=== PATIENT | female | born 1940 | race Caucasian/White ===

== ENCOUNTER → 2016-03-04 | Outpatient (CLI) | payer MEDICARE, OTHER ==
[2016-01-30 17:40] VITALS: BP 160/75
[~2016-03-04] MED LIST: CLON0.5T PO; CYCL10TA2 PO; CYCL1DRO OP; DULO60CA6 PO; FENO145T2 PO; FLUT9.9S NS; FURO40TA4 PO; GABA-586 PO; HYDR-971 PO; HYDR200T PO; IBAN150T PO; IOHEXOL 240 MG/ML 50ML VIAL. PO ONE; IOHEXOL 300 MG/ML 100ML VIAL. IV ONE; LAMO100T5 PO; LISI-334 PO; MELO15TA6 PO; METH2.5T PO; NITR100C PO; PANT40TA5 PO; POTA10CA PO; PRED1TAB3 PO; QUET300T5 PO; RISE35TA5 PO; TIZA4TAB PO
--- NOTE | 2016-03-04 12:14 | KCIC ---
PROCEDURE CT abdomen pelvis with contrast. HISTORY Abnormal bowel movements, symptoms for a few weeks, history of diverticulitis and bowel resection TECHNIQUE After administration of intravenous and oral contrast, CT imaging was performed of the abdomen and pelvis, multiplanar reconstruction images submitted. Exposure: One or more of the following individualized dose reduction techniques were utilized for this exam: 1. Automated exposure control. 2. Adjustment of the mA and/or kV according to patient size. 3. Use of iterative reconstruction technique. Contrast: 100 cc Omnipaque 300 COMPARISON None FINDINGS There is mild motion. There is mild atelectasis of visualized lung bases. There is coronary calcification. There is likely some calcification of the aortic valve leaflets. There is 1.6 centimeter hypodense lesion of the left lobe of the liver, density measurements of a cyst 14 Hounsfield units. Visualized bilateral breast parenchyma has a somewhat nodular appearance. Both kidneys enhance, no hydronephrosis. There is no adrenal nodularity. No focal abnormality is identified of the pancreas or spleen. Gallbladder is absent. There is no significant bowel dilatation, free air, free fluid. There is retained stool variably in the colon. There is anastomotic site at the level of the mid to distal sigmoid colon. There is mild to moderate diverticulosis of the redundant proximal to mid sigmoid colon and minimally of the descending colon, no inflammatory type change to suggest diverticulitis. Appendix if still present is not clearly identified. There is fat within the inguinal canals bilaterally greater on the right, no bowel. No significantly enlarged lymph nodes are identified. There is scattered atherosclerotic calcification of the abdominal aorta and iliac arteries. There is severe levoscoliosis centered about the thoracolumbar junction. There is grade 1 anterior spondylolisthesis at L4-5. There is multilevel variable moderate to severe degenerative disc disease. There is neural foramina compromise including more significant narrowing such as on the right at L1-L2, T12-L1, T11-12 and on the left at L5-S1, L4-5, L2-3, L1-2. There is multilevel lumbar facet degenerative change. IMPRESSION 1. There is colonic diverticulosis without convincing evidence of diverticulitis. There is no free air or free fluid. 2. There is severe lumbar levoscoliosis. There is multilevel degenerative disc disease, also multilevel neural foramina compromise. 3. There is fat in the inguinal canals bilaterally greater on the right, no bowel. 4. There apparently some calcification of the aortic valve leaflets. There is coronary calcification. Electronically signed by: Nehemias Camp MD (Mar 04, 2016 12:12:34)
== END | disposition home or self-care (01) ==
LOC: KCIC CT 10:14
PROVIDERS: ATTEND Family Medicine
DX: R19.4 Change in bowel habit (principal); I70.0 Atherosclerosis of aorta; M51.36 Other intervertebral disc degeneration, lumbar region
CPT/HCPCS: 74177; 82565; Q9966

== ENCOUNTER → 2016-03-26 | Outpatient (CLI) | payer MEDICARE, OTHER ==
[2016-01-30 17:40] VITALS: BP 160/75
[~2016-03-26] MED LIST changes: -IOHEXOL 240 MG/ML 50ML VIAL. PO ONE; -IOHEXOL 300 MG/ML 100ML VIAL. IV ONE
--- NOTE | 2016-03-26 15:04 | KCIC ---
PROCEDURE MR of the right shoulder HISTORY Right shoulder pain after a fall a few months ago. TECHNIQUE Standard noncontrast images are obtained. COMPARISON None FINDINGS [id number] motion degradation The acromioclavicular joint is degenerative with moderate osteophytes. There is undersurface mass-effect upon the supraspinatus. Full-thickness tear of the supraspinatus tendon, at its posterior aspect, measures about 15 mm AP with 20 mm retraction. Otherwise generalized rotator cuff tendinosis. Mild fluid in the subdeltoid bursa. Moderate muscle volume loss and fatty infiltration. No significant glenohumeral joint effusion. Abnormal signal within the superior and posterior labrum compatible with a tear. Biceps tendinosis with partial tearing. No dislocation. At least mild primary osteoarthritis at the glenohumeral joint. No bone lesion or acute fracture. No acute soft tissue or muscle pathology. IMPRESSION 1. Moderate full-thickness rotator cuff tear of the supraspinatus tendon with more generalized rotator cuff tendinosis. 2. Posterior through superior labral tear. 3. Primary osteoarthritis. Electronically signed by: Abner Zapata MD (Mar 26, 2016 15:03:06)
== END | disposition home or self-care (01) ==
LOC: KCIC MRI 12:13
PROVIDERS: ATTEND Orthopaedic Surgery
DX: M25.711 Osteophyte, right shoulder (principal); M75.101 Unspecified rotator cuff tear or rupture of right shoulder, not specified as traumatic
CPT/HCPCS: 73221

== ENCOUNTER → 2016-03-31 | Outpatient (CLI) | payer MEDICARE, OTHER ==
[2016-01-30 17:40] VITALS: BP 160/75
[~2016-03-31] MED LIST changes: +IOHEXOL 180 MG/ML 10 ML VIAL. ONE; +methylPREDNISolone ACETATE 40 MG/ML VIAL. ONE; +methylPREDNISolone ACETATE 80 MG/ML VIAL. ONE
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
== END | disposition home or self-care (01) ==
LOC: PNCL 11:06
PROVIDERS: ATTEND Anesthesiology
DX: M51.16 Intervertebral disc disorders with radiculopathy, lumbar region (principal); M19.90 Unspecified osteoarthritis, unspecified site; I10 Essential (primary) hypertension; M35.00 Sjogren syndrome, unspecified; Z83.3 Family history of diabetes mellitus
CPT/HCPCS: 62323; J1030; J1040

== ENCOUNTER → 2016-05-26 | Outpatient (CLI) | payer MEDICARE, OTHER ==
[2016-01-30 17:40] VITALS: BP 160/75
--- NOTE | 2016-05-26 19:23 | PAIN ---
DATE OF SERVICE: 05/26/2016 PROGRESS NOTE FOR PAIN CLINIC DIAGNOSES: Lumbar radiculopathy with lumbar degenerative disk disease and facet ____. HISTORY OF PRESENT ILLNESS: The patient is a 76-year-old female, who returns for followup status post lumbar epidural steroid injection x 1 on 03/31/2016. The patient reports she did very well with this, approximately 50% improvement, still residual in the low back and bilateral lower extremities. The patient reports the left is ____ of the right, in the hips and legs, but much less radiation in lower extremities, now it mostly just in the back as well. The patient increased activity with greater ease and comfort, but is beginning to return now the pain is in the low back and legs states for anymore from 9 to 6 on a scale 10, currently at 6. It is worse with walking and standing and flexion and extension exercises. The patient has been doing exercises as on her own and trying to walk every day, has been doing a good job of maintaining her activity level by her report. The patient reports no new motor or sensory deficits, no new bowel or bladder incontinence or other complaints. The patient reports the pain, sharp in the low back itself. PHYSICAL EXAMINATION: VITAL SIGNS: The patient's blood pressure 134/72, pulse 75, respirations are 18, temperature is 98.0 degrees Fahrenheit, height is 5 feet 8 inches, weight 203 pounds. GENERAL: The patient is awake, alert, oriented, appropriate, very pleasant demeanor. HEENT: Head shows normocephalic, atraumatic. Extraocular movements are intact, symmetrical. Oral cavity, mucous membranes are moist and pink. Dentition is intact. NECK: Shows anterior throat supple without palpable lymphadenopathy noted. Swallow reflex is symmetrical. CHEST: Shows normal on inspection. Breath sounds are clear to auscultation bilaterally. HEART: Shows S1 and S2 clear. ABDOMEN: Soft, nontender, nondistended. BACK: Shows spine grossly midline. Slight exaggeration of thoracic kyphosis and mild flattening of lumbar lordotic curvature. Lumbar paraspinous muscle shows some moderate tenderness with palpation in the lumbar paraspinous musculature bilaterally, but only diffusely without radiation of pain. LOWER EXTREMITIES: Showed deep tendon reflexes 1+ in the patellar and tendo calcaneus tendons are equal. Motor exam is approximately 4 on a scale of 5, but is symmetrical with dorsiflexion, extension, quadriceps and hamstring flexion and are equal bilaterally. Options were discussed with the patient and the patient's old chart was reviewed as her current medication regimen updated. Current review of systems updated today as well. We will proceed with a second lumbar epidural steroid injection today with fluoroscopic guidance. Risks were again discussed including, but not limited to bleeding, infection, possibility of epidural hematoma, subsequent neurologic compromise, dural punctures, headaches, spinal cord and/or nerve damage, side effects of steroid medication and poor results regarding pain control. The patient understands and wishes to proceed. The patient will return to clinic in approximately 2 weeks for followup, was counseled on return appointment, activity level and side effects to be aware of. DIAGNOSES: Lumbar radiculopathy with lumbar degenerative disk disease. PROCEDURES: Lumbar epidural steroid injection in translaminar approach at the L4-L5 level using C-arm fluoroscopic guidance under sterile prep and drape using local anesthetic. MEDICATIONS INJECTED: Depo-Medrol 120 mg plus with 10 mL of preservative-free normal saline and 2 mL Isovue for contrast. CONDITION ON DISCHARGE: Stable. The patient tolerated procedure well, had no complications. DEANN GARRISON MD DR: HO/harriet JOB#: [id number] / [id number]
== END | disposition home or self-care (01) ==
LOC: PNCL 11:05
PROVIDERS: ATTEND Anesthesiology
DX: M51.16 Intervertebral disc disorders with radiculopathy, lumbar region (principal); Z86.73 Personal history of transient ischemic attack (TIA), and cerebral infarction without residual deficits; Z90.49 Acquired absence of other specified parts of digestive tract
CPT/HCPCS: 62323; J1030; J1040

== ENCOUNTER → 2016-06-09 | Outpatient (CLI) | payer MEDICARE, OTHER ==
[2016-01-30 17:40] VITALS: BP 160/75
[~2016-06-09] MED LIST changes: +BUPIVACAINE MPF 0.25% 10 ML VIAL. ONE; -IOHEXOL 180 MG/ML 10 ML VIAL. ONE
--- NOTE | 2016-06-10 03:30 | PAIN ---
DATE OF SERVICE: 06/09/2016 DIAGNOSES: 1. Lumbar radiculopathy with lumbar degenerative disk disease. 2. Bilateral shoulder joint pain. HISTORY OF PRESENT ILLNESS: The patient is a 76-year-old female who returns for followup, status post lumbar epidural steroid injections x 2. The patient reports very good relief about 80% overall in her low back and bilateral lower extremities. The patient reports her main complaint today is bilateral shoulder pain and we talked about this on her last visit earlier this month. She has some significant acromioclavicular joint pain. The patient reports the pain in the shoulders at the worst is a 9 on a scale of 10, worse with activity, worse with using upper extremities, lifting anything, using her arms above her head, getting dressed. The patient reports it does not awaken her from sleep at night, but it is a shooting and aching pain in the shoulders themselves. Again, back doing much better. The patient reports no new motor or sensory deficits, no new bowel or bladder incontinence or other complaints. PHYSICAL EXAMINATION: VITAL SIGNS: Today, the patient's blood pressure 128/56, pulse is 68, respirations 18, temperature 98.0 degrees Fahrenheit. Height is 5 feet 4 inches, weight is 253 pounds. GENERAL: The patient is awake, alert, oriented, appropriate, very pleasant demeanor. HEENT: Shows normocephalic and atraumatic. Extraocular movements are intact and symmetrical. Oral cavity: Mucous membranes are moist and pink. Dentition is intact. NECK: Shows anterior throat supple without palpable lymphadenopathy noted. Swallow reflex is symmetrical. CHEST: Shows normal on inspection. Breath sounds are clear to auscultation bilaterally. HEART: Shows S1 and S2 clear. ABDOMEN: Soft, nontender, nondistended. No palpable organomegaly is noted. No rebound or guarding demonstrated. BACK: The patient's back shows spine grossly in the midline. Slight exaggeration of thoracic kyphosis and some mild flattening of the lumbar lordotic curvature. The patient's lower extremities show deep tendon reflexes at 1+ in the patellar and 1+ tendo calcaneus tendons. Motor exam is approximately 4 on a scale of 5, but equal and symmetrical bilaterally. EXTREMITIES: The patient's upper extremities show deep tendon reflexes at 2+ in the biceps and triceps tendons. 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 The patient has significant tenderness over the acromioclavicular joints, however, especially on the left side with palpation over the joint itself without specific radiation. Also, tenderness with abduction of the shoulder to 90 degrees and resistance with significant pain in this region as well. Options were discussed with the patient. The patient's old chart was reviewed as her current medication regimen and updated. Current review of systems updated today as well. We will proceed with bilateral acromioclavicular joint injections with fluoroscopic guidance today. Risks were discussed including but not limited to bleeding, infection, possibility of intravascular injection sequelae, spread of local anesthetic and numbness, pneumothorax, side effects of steroid medication, exposure to fluoroscopy and poor results regarding pain control. The patient understands and wishes to proceed. The patient will return to the clinic in approximately 2 weeks for followup. He was counseled on return appointment, activity levels and side effects to be aware of. DIAGNOSIS: Bilateral shoulder joint pain. PROCEDURE: Bilateral acromioclavicular joint injections with C-arm fluoroscopic guidance under sterile prep and drape using local anesthetic. MEDICATION INJECTED: A total of 80 mg of Depo-Medrol, 40 mg per side, and a total of 4 mL of 0.25% bupivacaine, 2 mL per side after negative aspiration at each injection. CONDITION AT DISCHARGE: Stable. The patient tolerated the procedure well, had no complications. DEANN GARRISON MD DR: HO/harriet JOB#: [id number] / [id number]
== END | disposition home or self-care (01) ==
LOC: PNCL 10:49
PROVIDERS: ATTEND Anesthesiology
DX: M25.512 Pain in left shoulder (principal); M25.511 Pain in right shoulder; Z86.73 Personal history of transient ischemic attack (TIA), and cerebral infarction without residual deficits; Z90.49 Acquired absence of other specified parts of digestive tract
CPT/HCPCS: 20605; 77002; J1030; J3490; J1040

== ENCOUNTER → 2016-06-17 | Outpatient (CLI) | payer MEDICARE, OTHER ==
[2016-01-30 17:40] VITALS: BP 160/75
[~2016-06-17] MED LIST changes: -BUPIVACAINE MPF 0.25% 10 ML VIAL. ONE; +IOHEXOL 180 MG/ML 10 ML VIAL. ONE; -POTA10CA PO; +POTASSIUM CHLO10 MEQ PO
--- NOTE | 2016-06-17 14:19 | PAIN ---
DATE OF SERVICE: 06/17/2016 PROGRESS NOTE FOR PAIN CLINIC DIAGNOSES: 1. Lumbar radiculopathy with lumbar degenerative disk disease. 2. Bilateral shoulder joint pain. HISTORY OF PRESENT ILLNESS: This is a 76-year-old female, who returns for followup status post bilateral acromioclavicular joint injections on 06/09/2016 with excellent relief nearly 100% of both shoulders at this time. The patient reports otherwise doing well. Her left shoulder has minor amount of pain and that she was lifting some items behind her the other day, but otherwise doing very well. The patient reports her main complaint still as her back and lower extremities with pain radiating to bilateral lower extremities, mostly in the posterior lateral thighs, anterior thighs across the low back with stabbing pain is aching, on and off intensity. It awakens her from sleep occasionally, but not every night. The patient reports anywhere from 5 to 8 on a scale of 10, currently a 5 today. The patient reports no new motor or sensory deficits, no new bowel or bladder incontinence or other complaints. PHYSICAL EXAMINATION: VITAL SIGNS: The patient's blood pressure 130/73, pulse 73, respirations are 20, temperature 98.1 degrees Fahrenheit. Height is 5 feet 6 inches, weight is 203 pounds. GENERAL: The patient is awake, alert, oriented, appropriate, very pleasant demeanor. HEENT: Shows normocephalic, atraumatic. Extraocular movements are intact and symmetrical. Oral cavity shows mucous membranes moist and pink. Dentition is intact. NECK: Shows anterior throat supple without palpable lymphadenopathy noted. Swallow reflex is symmetrical. CHEST: Shows normal on inspection. Breath sounds are clear to auscultation bilaterally. HEART: Shows S1 and S2 clear. ABDOMEN: Soft, nontender, nondistended. No palpable organomegaly is noted. BACK: Shows spine grossly midline. Slight exaggeration of thoracic kyphosis and mild flattening of lumbar lordotic curvature. Lumbar paraspinous musculature shows symmetrical with palpation and without significant tenderness radiation of pain with palpation. The patient shows only diffuse tenderness in the low lumbar distribution. No tenderness over the sacrum or sacroiliac regions. The patient shows good rotational motion of the lumbar spine, both laterally as well as extension and flexion without significant difficulty. EXTREMITIES: The patient's lower extremities show deep tendon reflexes at 1+ in the patellar tendons. Motor exam is strong with 5/5 dorsiflexion, extension and equal. Options were discussed with the patient. The patient's old chart was reviewed as her current medication regimen updated. Current review of systems updated today as well. We will proceed with the third in a series of lumbar epidural steroid injection today with fluoroscopic guidance. Risks were again discussed including but not limited to bleeding, infection, possibility of epidural hematoma, subsequent neurologic compromise, dural puncture, headaches, spinal cord and/or nerve damage, side effects of steroid medication and poor results regarding pain control. The patient understands and wishes to proceed. The patient will return to the clinic in approximately 2 weeks for followup, was counseled on return appointment, activity level and side effects to be aware of. DIAGNOSES: Lumbar radiculopathy with lumbar degenerative disk disease. PROCEDURES: Lumbar epidural steroid injection in translaminar approach at the L4-L5 level using C-arm fluoroscopic guidance under sterile prep and drape using local anesthetic. MEDICATIONS INJECTED: Depo-Medrol 120 mg plus 10 mL of the preservative-free normal saline and 2 mL of Isovue for contrast. CONDITION AT DISCHARGE: Stable. The patient tolerated the procedure well, had no complications. DEANN GARRISON MD DR: HO/harriet JOB#: [id number] / [id number]
== END | disposition home or self-care (01) ==
LOC: PNCL 05:00
PROVIDERS: ATTEND Anesthesiology
DX: M51.16 Intervertebral disc disorders with radiculopathy, lumbar region (principal); Z90.49 Acquired absence of other specified parts of digestive tract; Z86.73 Personal history of transient ischemic attack (TIA), and cerebral infarction without residual deficits
CPT/HCPCS: 62323; J1030; J1040

== ENCOUNTER → 2016-08-31 | Outpatient (CLI) | payer MEDICARE, OTHER ==
[2016-01-30 17:40] VITALS: BP 160/75
[~2016-08-31] MED LIST changes: +BUPIVACAINE MPF 0.25% 10 ML VIAL. ONE; -methylPREDNISolone ACETATE 40 MG/ML VIAL. ONE
== END | disposition home or self-care (01) ==
LOC: PNCL 10:26
PROVIDERS: ATTEND Anesthesiology
DX: M25.512 Pain in left shoulder (principal); M25.511 Pain in right shoulder; M51.16 Intervertebral disc disorders with radiculopathy, lumbar region; Z88.6 Allergy status to analgesic agent; Z88.1 Allergy status to other antibiotic agents; Z88.2 Allergy status to sulfonamides
CPT/HCPCS: 20605; J1040; J3490

== ENCOUNTER 2016-10-17 10:36 | Emergency (ER) | payer MEDICARE, OTHER ==
[~2016-10-17] VITALS: Ht 172.7 cm; Wt 90.7 kg
[~2016-10-17 10:36] MED LIST changes: -BUPIVACAINE MPF 0.25% 10 ML VIAL. ONE; -IOHEXOL 180 MG/ML 10 ML VIAL. ONE; -methylPREDNISolone ACETATE 80 MG/ML VIAL. ONE
[2016-10-17 10:49] VITALS: BP 136/60
[2016-10-17] MEDS ORDERED: CLIN150C14 PO (10:58)
--- NOTE | 2016-10-17 10:58 | PHYS DOC ---
Past Medical History Past Medical History: Bipolar, High Cholesterol, Hypertension, TIA, Other Additional Past Medical Histor: lupus, sjogren's syndrome Past Surgical History: Cholecystectomy, Hysterectomy, Knee Replacement, Other Additional Past Surgical Histo: bowel resection; left foot surgery Alcohol Use: None Drug Use: None Adult General Chief Complaint Chief Complaint: LACERATION/AVULSION HPI HPI Patient is a 76 year old female with history of hypertension, high cholesterol , bipolar who presents today with dog scratch to the right forearm that happened one week ago. Patient states she got scratched by a friend's dog. Review of Systems Review of Systems Constitutional: Denies fever or chills [] Musculoskeletal: Denies back pain or joint pain [] Integument:dog scratch to the right forearm Neurologic: Denies headache, focal weakness or sensory changes [] Allergies Allergies Allergies Coded Allergies Type Severity Reaction Last Updated Verified Sulfa (Sulfonamide Antibiotics) Adverse Reaction Intermediate NAUSEA AND VOMITING 03/25/15 Yes cephalexin Adverse Reaction Intermediate VOMITING 03/25/15 Yes tramadol Adverse Reaction Intermediate DIZZINESS 03/25/15 Yes Physical Exam Physical Exam Constitutional: Well developed, well nourished, no acute distress, non-toxic appearance. [] Skin: Right forearm with an open wound approximately 2 x 1 cm. The wound is draining yellow discharge. Back: No tenderness, no CVA tenderness. [] Extremities: No tenderness, no cyanosis, no clubbing, ROM intact, no edema. [] Neurologic: Alert and oriented X 3, normal motor function, normal sensory function, no focal deficits noted. [] Psychologic: Affect normal, judgement normal, mood normal. [] EKG EKG [] Radiology/Procedures Radiology/Procedures [] Course & Med Decision Making Course & Med Decision Making Pertinent Labs and Imaging studies reviewed. (See chart for details) Patient is 76 year old woman who presents with approx. 2 x 1 cm infected dog scratch to the right forearm. Patient was discharged with clindamycin. She is allergic to cephalexin and Bactrim. She was instructed to keep the area clean and dry. Neosporin also recommended to the area. Tetanus updated. Follow-up with PCP in the course of this week. Provided return precautions. Dragon Disclaimer Dragon Disclaimer This electronic medical record was generated, in whole or in part, using a voice recognition dictation system. Departure Departure Impression: Primary Impression: Infected dog bite of forearm Disposition: 01 HOME, SELF-CARE Condition: STABLE Referrals: CLIFTON ADAME MD (PCP) Follow-up with your doctor in the next 7 days Patient Instructions: Animal Bite, Rzux-to-Yhue, Skin Infections Additional Instructions: You were seen with an infected dog scratch to the right forearm. Please keep the area clean and dry. You can wash it with her regular soap and water. Apply Neosporin to the area twice a day. Keep it covered if draining otherwise leave it open to air. Ensure you complete your oral antibiotics. Please follow-up with your doctor in the course of this week. Come back to the emergency room at any point symptoms worsen especially if you develop a fever. Scripts Clindamycin Hcl (CLINDAMYCIN HCL) 150 Mg Capsule 3 CAP PO TID, #90 CAP Prov: NONI CHUN APRN 10/17/16 Problem Qualifiers Primary Impression: Infected dog bite of forearm Encounter type: initial encounter Laterality: right Qualified Codes: S51.851A - Open bite of right forearm, initial encounter; L08.9 - Local infection of the skin and subcutaneous tissue, unspecified; W54.0XXA - Bitten by dog, initial encounter NONI CHUN APRN Oct 17, 2016 10:58
[2016-10-17] MEDS ORDERED: DIPHTH,PERTUSS(ACELL),TET TOX 0.5 ML DISP.SYRIN. VAX IM ONE (11:00)
[2016-10-17] MEDS ORDERED: CLINDAMYCIN HCL 150 MG CAPSULE. PO ONE (11:00)
== END 2016-10-17 11:10 | disposition home or self-care (01) ==
LOC: ER 10:36
DX: S51.851A Open bite of right forearm, initial encounter (principal); L08.9 Local infection of the skin and subcutaneous tissue, unspecified; I10 Essential (primary) hypertension; E78.00 Pure hypercholesterolemia, unspecified; F31.9 Bipolar disorder, unspecified; M32.9 Systemic lupus erythematosus, unspecified; Z86.73 Personal history of transient ischemic attack (TIA), and cerebral infarction without residual deficits; M35.00 Sjogren syndrome, unspecified; Z88.2 Allergy status to sulfonamides; Z88.1 Allergy status to other antibiotic agents; Z88.6 Allergy status to analgesic agent; W54.0XXA Bitten by dog, initial encounter; Y93.89 Activity, other specified; Y99.8 Other external cause status; Y92.89 Other specified places as the place of occurrence of the external cause
CPT/HCPCS: 90471; 90715; 99283-25

== ENCOUNTER 2016-10-21 16:54 | Emergency (ER) | payer MEDICARE, OTHER ==
[~2016-10-21] VITALS: Ht 172.7 cm; Wt 90.7 kg
[~2016-10-21 16:54] MED LIST changes: +CLIN150C14 PO
[2016-10-21] MEDS ORDERED: ONDANSETRON PF 4 MG/2 ML VIAL. IV ONE (17:45)
[2016-10-21 17:49] LABS: BASO # 0.1 x10^3/uL (0.0-0.2); BASO % 1 % (0-3); EOS % 2 % (0-3); HEMATOCRIT 39.1 % (36.0-47.0); HEMOGLOBIN 12.7 g/dL (12.0-15.5); LYMPH # 1.8 x10^3/uL (1.0-4.8); LYMPH % 25 % (24-48); MEAN CORPUSCULAR HEMOGLOBIN 29 pg (25-35); MEAN CORPUSCULAR HGB CONC 32 g/dL (31-37); MEAN CORPUSCULAR VOLUME 88 fL (79-100); MONO % 9 % (0-9); NEUT % 63 % (31-73); PLATELET COUNT 240 x10^3/uL (140-400); RED BLOOD COUNT 4.46 x10^6/uL (3.50-5.40); RED CELL DISTRIBUTION WIDTH 13.3 % (11.5-14.5)
[2016-10-21 17:50] LABS: BILIRUBIN,URINE NEGATIVE (NEG); GLUCOSE,URINE NEGATIVE (NEG); NITRITE,URINE NEGATIVE (NEG); PROTEIN,URINE NEGATIVE (NEG-TRACE); UROBILINOGEN,URINE 0.2 mg/dL (0.2 mg/dL)
[2016-10-21 18:00] LABS: BACTERIA,URINE FEW /HPF (0-FEW); RBC,URINE 0 /HPF (0-2); SQUAMOUS EPITHELIAL CELL,UR OCC /LPF; WBC,URINE OCC /HPF (0-4)
[2016-10-21 18:04] LABS: CALCIUM 9.4 mg/dL (8.5-10.1); CREATININE 1.2 mg/dL (0.6-1.0); GFR 43.7; POTASSIUM 4.8 mmol/L (3.5-5.1)
[2016-10-21 18:09] LABS: ALBUMIN/GLOBULIN RATIO 1.3 (1.0-1.7); TOTAL BILIRUBIN 0.3 mg/dL (0.2-1.0); TOTAL PROTEIN 7.2 g/dL (6.4-8.2)
[2016-10-21 18:34] VITALS: BP 166/74
--- NOTE | 2016-10-21 18:36 | EKG ---
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
[2016-10-21] MEDS ORDERED: LIDOCAINE (700MG/PATCH) PATCH. TD ONE (19:15)
[2016-10-21] MEDS ORDERED: fentaNYL PF VIAL 100 MCG/2 ML VIAL IV PRN (19:15)
--- NOTE | 2016-10-21 20:04 | RAD ---
Examination: CT of the abdomen pelvis were performed without contrast HISTORY: History of left flank pain COMPARISON: None available TECHNIQUE: Axial CT images of the abdomen pelvis were performed without contrast. Coronal and sagittal reformats are performed. Exposure: One or more of the following individualized dose reduction techniques were utilized for this examination: 1. Automated exposure control 2. Adjustment of the mA and/or kV according to patient size 3. Use of iterative reconstruction technique FINDINGS: Mild bibasilar lung atelectasis. No evidence of free air identified in the abdomen. The evaluation of solid organs is limited due to lack of IV contrast. The evaluation of bowel is limited due to lack of oral contrast. There is a hypodensity identified in the left lobe of the liver measuring 1.7 cm could be a cyst or cystic lesion. The visualized spleen, adrenals grossly appears unremarkable The stomach is mildly distended The small bowel is nondilated Feces and gas noted in the colon The visualized appendix grossly appears unremarkable Moderate amount of feces and gas noted throughout the colon. Few scattered colonic diverticula identified throughout the colon Prior surgical changes identified distal sigmoid colon region Urinary bladder is mildly distended No evidence of intrahepatic stomach is identified. There is mild prominent appearing right renal pelvis without obstructing calculus. Moderate aortic atherosclerosis. Severe degenerative changes identified at T12-L1 vertebral levels. Lumbar levoscoliosis IMPRESSION: 1. Mild prominent appearing right renal pelvis could be mild hydronephrosis . No evidence of obstructing calculi identified. 2. A hypodensity identified in the left lobe of the liver measuring 1.7 cm could be a cyst or cystic lesion. Follow-up nonemergent ultrasound can be considered. Electronically signed by: Isai Peterson MD (10/21/2016 8:01 PM) [facility]
[2016-10-21] MEDS ORDERED: LIDO700A39 TP (21:09)
--- NOTE | 2016-10-21 22:06 | ED.ADGEN ---
Past Medical History Past Medical History: Bipolar, High Cholesterol, Hypertension, TIA, Other Additional Past Medical Histor: lupus, sjogren's syndrome Past Surgical History: Cholecystectomy, Hysterectomy, Knee Replacement, Other Additional Past Surgical Histo: bowel resection; left foot surgery Alcohol Use: None Drug Use: None Adult General Chief Complaint Chief Complaint: ABDOMINAL PAIN HPI HPI Patient is a 76 year old woman, history of hypertension, lupus, bipolar disorder, Sjogren's syndrome, who ambulance with a walker baseline, present emergency department with complaint of left-sided back pain rating down as the left abdomen. Patient states pain began a few hours ago, and sharp and stabbing in nature, states that she's had similar back pains previously due to muscle spasm. Patient states she currently is taking myosin for a skin infection on her right arm, has been taking it for the past 5 days, with significant improvement of the infection, and believes that the medication be contributing to her muscle spasms and pain. States she was seen by a chiropractor yesterday, and told that "I'm out of alignment and need follow-up". She denies any new injuries, any weakness, numbness, tingling, nausea, vomiting states she is having some diarrhea, denies any blood in her stool. Patient states she's been taking her home medications including baclofen and hydrocodone without relief. Denies any urinary complaints. No chest pain or shortness of breath. Patient's daughter is present at bedside. Review of Systems Review of Systems Constitutional: Denies fever or chills. [] Eyes: Denies change in visual acuity. [] HENT: Denies nasal congestion or sore throat. [] Respiratory: Denies cough or shortness of breath. [] Cardiovascular: Denies chest pain or edema. [] GI: Denies nausea, vomiting, bloody stools, left flank and abdominal pain for the past several hours, diarrhea for the past several days. [] : Denies dysuria. [] Musculoskeletal: Denies back pain or joint pain. [] Integument: Denies rash. [] Neurologic: Denies headache, focal weakness or sensory changes. [] Endocrine: Denies polyuria or polydipsia. [] Lymphatic: Denies swollen glands. [] Psychiatric: Denies depression or anxiety. [] Current Medications Current Medications Current Medications Medications (Trade) Dose Ordered Sig/Mary Start Time Stop Time Status Last Admin Dose Admin Fentanyl Citrate (Fentanyl 2ml Vial) 25 mcg PRN Q15MIN PRN 10/21/16 19:15 10/21/16 21:19 DC 10/21/16 19:28 25 MCG Lidocaine (Lidoderm) 1 patch 1X ONCE 10/21/16 19:15 10/21/16 19:16 DC 10/21/16 19:12 1 PATCH Ondansetron HCl (Zofran) 4 mg 1X ONCE 10/21/16 17:45 10/21/16 17:46 DC Allergies Allergies Allergies Coded Allergies Type Severity Reaction Last Updated Verified Sulfa (Sulfonamide Antibiotics) Adverse Reaction Intermediate NAUSEA AND VOMITING 03/25/15 Yes cephalexin Adverse Reaction Intermediate VOMITING 03/25/15 Yes tramadol Adverse Reaction Intermediate DIZZINESS 03/25/15 Yes Physical Exam Physical Exam Constitutional: Well developed, well nourished, no acute distress, non-toxic appearance. [] HENT: Normocephalic, atraumatic, bilateral external ears normal, oropharynx moist, no oral exudates, nose normal. [] Eyes: PERRLA, EOMI, conjunctiva normal, no discharge. [] Neck: Normal range of motion, no tenderness, supple, no stridor. [] Cardiovascular:Heart rate regular rhythm, no murmur, S1, S2, no rubs or gallops. [] Lungs & Thorax: Bilateral breath sounds clear to auscultation, no wheezing, rhonchi, rales. No chest or crepitus or tenderness. [] Abdomen: Bowel sounds normal, soft, no tenderness, no masses, no pulsatile masses. [] Skin: Warm, dry, no erythema, no rash. [] Back: Patient with tenderness palpation in the paraspinal muscles of the left lumbar region, patient does have pain with mild palpation of the left abdomen, states the pain is radiating around from the back. Noted to have significant tissue tension and muscle spasm in the lumbar region, without any step-offs or deformities are midline tenderness appreciated, no CVA tenderness. [] Extremities: No tenderness, no cyanosis, no clubbing, ROM intact, no edema. [] Neurologic: Alert and oriented X 3, normal motor function, normal sensory function, no focal deficits noted. [] Psychologic: Affect normal, judgement normal, mood normal. [] Current Patient Data Vital Signs Vital Signs Date Time Temp Pulse Resp B/P (MAP) Pulse Ox O2 Delivery O2 Flow Rate FiO2 10/21/16 19:28 16 10/21/16 18:34 61 166/74 (104) 94 Room Air 10/21/16 17:48 98.5 98.5 Lab Values Laboratory Tests Test 10/21/16 17:30 10/21/16 17:40 10/21/16 18:30 Urine Color Yellow Urine Clarity Cloudy Urine pH 7.0 Urine Specific [place] 1.010 Urine Protein Negative mg/dL (NEG-TRACE) Urine Glucose (UA) Negative mg/dL (NEG) Urine Ketones (Stick) Negative mg/dL (NEG) Urine Blood Negative (NEG) Urine Nitrite Negative (NEG) Urine Bilirubin Negative (NEG) Urine Urobilinogen Dipstick 0.2 mg/dL (0.2 mg/dL) Urine Leukocyte Esterase Negative (NEG) Urine RBC 0 /HPF (0-2) Urine WBC Occ /HPF (0-4) Urine Squamous Epithelial Cells Occ /LPF Urine Amorphous Sediment Present /HPF Urine Bacteria Few /HPF (0-FEW) White Blood Count 7.0 x10^3/uL (4.0-11.0) Red Blood Count 4.46 x10^6/uL (3.50-5.40) Hemoglobin 12.7 g/dL (12.0-15.5) Hematocrit 39.1 % (36.0-47.0) Mean Corpuscular Volume 88 fL (79-100) Mean Corpuscular Hemoglobin 29 pg (25-35) Mean Corpuscular Hemoglobin Concent 32 g/dL (31-37) Red Cell Distribution Width 13.3 % (11.5-14.5) Platelet Count 240 x10^3/uL (140-400) Neutrophils (%) (Auto) 63 % (31-73) Lymphocytes (%) (Auto) 25 % (24-48) Monocytes (%) (Auto) 9 % (0-9) Eosinophils (%) (Auto) 2 % (0-3) Basophils (%) (Auto) 1 % (0-3) Neutrophils # (Auto) 4.4 x10^3uL (1.8-7.7) Lymphocytes # (Auto) 1.8 x10^3/uL (1.0-4.8) Monocytes # (Auto) 0.6 x10^3/uL (0.0-1.1) Eosinophils # (Auto) 0.1 x10^3/uL (0.0-0.7) Basophils # (Auto) 0.1 x10^3/uL (0.0-0.2) Sodium Level 139 mmol/L (136-145) Potassium Level 4.8 mmol/L (3.5-5.1) Chloride Level 102 mmol/L (98-107) Carbon Dioxide Level 31 mmol/L (21-32) Anion Gap 6 (6-14) Blood Urea Nitrogen 24 mg/dL (7-20) H Creatinine 1.2 mg/dL (0.6-1.0) H Estimated GFR (Cockcroft-Gault) 43.7 BUN/Creatinine Ratio 20 (6-20) Glucose Level 106 mg/dL (70-99) H Calcium Level 9.4 mg/dL (8.5-10.1) Total Bilirubin 0.3 mg/dL (0.2-1.0) Aspartate Amino Transferase (AST) 22 U/L (15-37) Alanine Aminotransferase (ALT) 26 U/L (14-59) Alkaline Phosphatase 51 U/L (46-116) Total Protein 7.2 g/dL (6.4-8.2) Albumin 4.0 g/dL (3.4-5.0) Albumin/Globulin Ratio 1.3 (1.0-1.7) Lipase 125 U/L (73-393) Lactic Acid Level 0.6 mmol/L (0.4-2.0) Laboratory Tests 10/21/16 17:40 Laboratory Tests 10/21/16 17:40 EKG EKG EC: Sinus rhythm, heart rate 62 beats are minute, upright axis, QTC of 422, CA 188, QRS of 74, no ST elevations or depressions, contour abnormality is noted in the inferior and lateral leads, does not meet STEMI criteria. As interpreted by me.[] Radiology/Procedures Radiology/Procedures [][facility] [address] [place] [address] IMAGING REPORT Signed PATIENT: GLENIS DOAN I ACCOUNT: [id number] : 1940 LOCATION: ER AGE: 76 SEX: F EXAM STATUS: REG ER ORD. PHYSICIAN: SERA MEIER DO REASON: L flank pain PROCEDURE: CT ABDOMEN PELVIS WO CONTRAST Examination: CT of the abdomen pelvis were performed without contrast HISTORY: History of left flank pain COMPARISON: None available TECHNIQUE: Axial CT images of the abdomen pelvis were performed without contrast. Coronal and sagittal reformats are performed. Exposure: One or more of the following individualized dose reduction techniques were utilized for this examination: 1. Automated exposure control 2. Adjustment of the mA and/or kV according to patient size 3. Use of iterative reconstruction technique FINDINGS: Mild bibasilar lung atelectasis. No evidence of free air identified in the abdomen. The evaluation of solid organs is limited due to lack of IV contrast. The evaluation of bowel is limited due to lack of oral contrast. There is a hypodensity identified in the left lobe of the liver measuring 1.7 cm could be a cyst or cystic lesion. The visualized spleen, adrenals grossly appears unremarkable The stomach is mildly distended The small bowel is nondilated Feces and gas noted in the colon The visualized appendix grossly appears unremarkable Moderate amount of feces and gas noted throughout the colon. Few scattered colonic diverticula identified throughout the colon Prior surgical changes identified distal sigmoid colon region Urinary bladder is mildly distended No evidence of intrahepatic stomach is identified. There is mild prominent appearing right renal pelvis without obstructing calculus. Moderate aortic atherosclerosis. Severe degenerative changes identified at T12-L1 vertebral levels. Lumbar levoscoliosis IMPRESSION: 1. Mild prominent appearing right renal pelvis could be mild hydronephrosis . No evidence of obstructing calculi identified. 2. A hypodensity identified in the left lobe of the liver measuring 1.7 cm could be a cyst or cystic lesion. Follow-up nonemergent ultrasound can be considered. Electronically signed by: Isai Peterson MD (10/21/2016 8:01 PM) [facility] DICTATED and SIGNED BY: ISAI PETERSON MD DATE: 10/21/161952 CC: CLIFTON ADAME MD; SERA MEIER DO ~ Course & Med Decision Making Course & Med Decision Making Pertinent Labs and Imaging studies reviewed. (See chart for details) Patient with evidence of tissue tension and muscle spasm location of pain, however with the patient's complaint of diarrhea, and age and other comorbidities, patient is agreeable receiving additional imaging or laboratory studies the ED to rule out any occult abnormalities. Laboratory studies and imaging obtained, does not reveal any evidence of acutely concerning findings CT findings and labs discussed with patient and family at bedside. Patient received fentanyl in the ED, along with placement of a Lidoderm patch, states that she is feeling significant better. Patient was ambulatory trial in the emergency department which she performed without issue, and states that she is rated go home. Patient's lives in an assisted-living, and patient's daughter states that she will stay with the patient, to ensure that she remains couple for the night, we also reviewed concerning symptoms that prompt return to the emergency department for additional evaluation. Patient voiced understanding and agreement with instructions and precautions, was given a prescription for Lidoderm patches to be used as needed on for 12 hours off her 12 hours, discharged home with her daughter in improved condition with plan as above., Leslee Disclaimer Dragon Disclaimer This electronic medical record was generated, in whole or in part, using a voice recognition dictation system. Departure Impression: Primary Impression: Muscle spasm Disposition: HOME, SELF-CARE Condition: IMPROVED Scripts Lidocaine (Lidocaine) 1 Each Adh..patch 1 EACH TP DAILY Y for MUSCLE SPASMS, #12 PATCH You make cuts patch in order to use the smallest amount possible that is effective, and applied to the affected area. Please keep patch on 12 hours, and then take off for 12 hours, do not use with heating pads or ice packs. Prov: SERA MEIER DO 10/21/16 SERA MEIER DO Oct 21, 2016 22:06
== END 2016-10-21 21:19 | disposition home or self-care (01) ==
LOC: ER 16:54
DX: M62.830 Muscle spasm of back (principal); I10 Essential (primary) hypertension; E78.00 Pure hypercholesterolemia, unspecified; F31.9 Bipolar disorder, unspecified; Z86.73 Personal history of transient ischemic attack (TIA), and cerebral infarction without residual deficits; Z88.2 Allergy status to sulfonamides; Z88.1 Allergy status to other antibiotic agents; Z88.6 Allergy status to analgesic agent
CPT/HCPCS: 36415; 74176; 80053; 81001; 83605; 83690; 85025; 93005; 96374; 99285; J3010

== ENCOUNTER 2016-11-19 18:32 | Emergency (ER) | payer MEDICARE, OTHER ==
[~2016-11-19] VITALS: Ht 172.7 cm; Wt 90.7 kg
[~2016-11-19 18:32] MED LIST changes: +LIDO700A39 TP
--- NOTE | 2016-11-19 19:09 | PHYS DOC ---
Past Medical History Past Medical History: Bipolar, High Cholesterol, Hypertension, TIA, Other Additional Past Medical Histor: lupus, sjogren's syndrome Past Surgical History: Cholecystectomy, Hysterectomy, Knee Replacement, Other Additional Past Surgical Histo: bowel resection; left foot surgery Alcohol Use: None Drug Use: None Adult General Chief Complaint Chief Complaint: OTHER COMPLAINTS [facility] HPI Patient is a 76 year old female who presents with UTI. She is a she' s been on Cipro twice over the last 2 weeks and is on Azo now. She states she has chronic suprapubic pain. She denies any fevers chills nausea or vomiting. Review of Systems Review of Systems Constitutional: Denies fever or chills [] Eyes: Denies change in visual acuity, redness, or eye pain [] HENT: Denies nasal congestion or sore throat [] Respiratory: Denies cough or shortness of breath [] Cardiovascular: No additional information not addressed in HPI [] GI: Positive for abdominal pain,Denies nausea, vomiting, bloody stools or diarrhea [] : Denies dysuria or hematuria [] Musculoskeletal: Denies back pain or joint pain [] Integument: Denies rash or skin lesions [] Neurologic: Denies headache, focal weakness or sensory changes [] Endocrine: Denies polyuria or polydipsia [] Allergies Allergies Allergies Coded Allergies Type Severity Reaction Last Updated Verified Sulfa (Sulfonamide Antibiotics) Adverse Reaction Intermediate NAUSEA AND VOMITING 03/25/15 Yes cephalexin Adverse Reaction Intermediate VOMITING 03/25/15 Yes tramadol Adverse Reaction Intermediate DIZZINESS 03/25/15 Yes Physical Exam Physical Exam Constitutional: Well developed, well nourished, no acute distress, non-toxic appearance. [] HENT: Normocephalic, atraumatic, bilateral external ears normal, oropharynx moist, no oral exudates, nose normal. [] Eyes: PERRLA, EOMI, conjunctiva normal, no discharge. [] Neck: Normal range of motion, no tenderness, supple, no stridor. [] Cardiovascular:Heart rate regular rhythm, no murmur [] Lungs & Thorax: Bilateral breath sounds clear to auscultation [] Abdomen: Bowel sounds normal, soft, mildly tender to palpation suprapubic area, no rebound or guarding noted, no masses, no pulsatile masses. [] Skin: Warm, dry, no erythema, no rash. [] Back: No tenderness, no CVA tenderness. [] Extremities: No tenderness, no cyanosis, no clubbing, ROM intact, no edema. [] Neurologic: Alert and oriented X 3, normal motor function, normal sensory function, no focal deficits noted. [] Psychologic: Affect normal, judgement normal, mood normal. [] Current Patient Data Vital Signs Vital Signs Date Time Temp Pulse Resp B/P (MAP) Pulse Ox O2 Delivery O2 Flow Rate FiO2 11/19/16 22:30 70 16 176/85 (115) 94 Nasal Cannula 2.0 Lab Values Laboratory Tests Test 11/19/16 19:48 11/19/16 20:26 Urine Collection Type Unknown Urine Color [place] Urine Clarity Clear Urine pH 6.0 Urine Specific [place] 1.020 Urine Protein Negative mg/dL (NEG-TRACE) Urine Glucose (UA) Negative mg/dL (NEG) Urine Ketones (Stick) Trace mg/dL (NEG) Urine Blood Negative (NEG) Urine Nitrite (NEG) Urine Bilirubin Negative (NEG) Urine Urobilinogen Dipstick 1.0 mg/dL (0.2 mg/dL) Urine Leukocyte Esterase (NEG) Urine RBC Occ /HPF (0-2) Urine WBC 0 /HPF (0-4) Urine Squamous Epithelial Cells Few /LPF Urine Bacteria 0 /HPF (0-FEW) Urine Hyaline Casts Occasional /HPF White Blood Count 6.1 x10^3/uL (4.0-11.0) Red Blood Count 3.89 x10^6/uL (3.50-5.40) Hemoglobin 11.2 g/dL (12.0-15.5) L Hematocrit 34.2 % (36.0-47.0) L Mean Corpuscular Volume 88 fL (79-100) Mean Corpuscular Hemoglobin 29 pg (25-35) Mean Corpuscular Hemoglobin Concent 33 g/dL (31-37) Red Cell Distribution Width 13.5 % (11.5-14.5) Platelet Count 222 x10^3/uL (140-400) Neutrophils (%) (Auto) 54 % (31-73) Lymphocytes (%) (Auto) 30 % (24-48) Monocytes (%) (Auto) 13 % (0-9) H Eosinophils (%) (Auto) 2 % (0-3) Basophils (%) (Auto) 1 % (0-3) Neutrophils # (Auto) 3.3 x10^3uL (1.8-7.7) Lymphocytes # (Auto) 1.8 x10^3/uL (1.0-4.8) Monocytes # (Auto) 0.8 x10^3/uL (0.0-1.1) Eosinophils # (Auto) 0.1 x10^3/uL (0.0-0.7) Basophils # (Auto) 0.1 x10^3/uL (0.0-0.2) Sodium Level 141 mmol/L (136-145) Potassium Level 4.5 mmol/L (3.5-5.1) Chloride Level 103 mmol/L (98-107) Carbon Dioxide Level 32 mmol/L (21-32) Anion Gap 6 (6-14) Blood Urea Nitrogen 23 mg/dL (7-20) H Creatinine 1.2 mg/dL (0.6-1.0) H Estimated GFR (Cockcroft-Gault) 43.7 Glucose Level 97 mg/dL (70-99) Calcium Level 9.1 mg/dL (8.5-10.1) Total Bilirubin 0.3 mg/dL (0.2-1.0) Direct Bilirubin 0.1 mg/dL (0.0-0.2) Aspartate Amino Transferase (AST) 22 U/L (15-37) Alanine Aminotransferase (ALT) 23 U/L (14-59) Alkaline Phosphatase 41 U/L (46-116) L Total Protein 6.5 g/dL (6.4-8.2) Albumin 3.6 g/dL (3.4-5.0) Laboratory Tests 11/19/16 20:26 Laboratory Tests 11/19/16 20:26 EKG EKG [] Radiology/Procedures Radiology/Procedures [facility] [address] [place], [place] [id number] IMAGING REPORT Signed PATIENT: GLENIS DOAN I ACCOUNT: [id number] : 1940 LOCATION: ER AGE: 76 SEX: F EXAM STATUS: REG ER ORD. PHYSICIAN: WENDI VIVEROS MD REASON: abd pain PROCEDURE: CT ABDOMEN PELVIS WO CONTRAST CT Abdomen and Pelvis without contrast History: Abdominal pain and urinary tract infection for 2 weeks, on antibiotics, painful urination Technique: Noncontrast CT imaging was performed of the abdomen and pelvis. Multiplanar images are reviewed. Exposure: One or more of the following individualized dose reduction techniques were utilized for this examination: 1. Automated exposure control 2. Adjustment of the mA and/or kV according to patient size 3. Use of iterative reconstruction technique. Comparison: October 21, 2016 Findings: Mild right pelvocaliectasis/very mild hydronephrosis is stable. Ureters are not dilated. No renal or ureteral calculi are identified. Accurate evaluation of the abdominal visceral organs is limited without intravenous contrast, no new focal abnormality of the pancreas or spleen. There is again 1.5 cm hypodense lesion of the left lobe of the liver, density measurements more suggestive of a cyst 17 Hounsfield units. Accurate evaluation of bowel is limited without oral contrast, no significant bowel dilatation or free air or free fluid. There is variable retained stool in the colon. There is again fat in the inguinal canals bilaterally, no bowel. There is moderate to severe lumbar levoscoliosis and multilevel variable lumbar degenerative disc disease, mild grade 1 anterior spondylolisthesis at L4-5. There is multilevel variable lumbar neural foramina compromise. There is coronary calcification. There is scattered atherosclerotic calcification of the abdominal aorta and iliac arteries bilaterally. Impression: 1. Mild right pelvocaliectasis/very mild right hydronephrosis is stable, no obstructive calculi identified. 2. There is variable between shoulder:. 3. There is again probable cyst of the left lobe of liver. 4. There is coronary calcification. 5. There is moderate to severe lumbar levoscoliosis, multilevel lumbar facet degenerative change and degenerative disc disease. Electronically signed by: Sushila Boo MD (11/19/2016 10:04 PM) [facility] DICTATED and SIGNED BY: SUSHILA BOO MD DATE: 11/19/162156 CC: CLIFTON ADAME MD; WENDI VIVEROS MD ~ Impressions: Dysuria Course & Med Decision Making Course & Med Decision Making Pertinent Labs and Imaging studies reviewed. (See chart for details) Labs show any acute abnormalities. I do not appreciate shows a urinary tract infection. CT scan was performed without oral contrast as the patient did not want to wait. He does not appreciate any abnormalities. The patient is being discharged home. Return precautions given. Dragon Disclaimer Dragon Disclaimer This electronic medical record was generated, in whole or in part, using a voice recognition dictation system. Departure Departure Impression: Primary Impression: Dysuria Disposition: 01 HOME, SELF-CARE Condition: STABLE Referrals: CLIFTON ADAME MD (PCP) Patient Instructions: Dysuria Additional Instructions: The CAT scan no pelvis did not show any acute abnormalities. Your urinalysis also did not show any signs of infection. You being discharged home. Please follow-up to primary care physician. Return to ER for severe pain, fevers, or other concerns. WENDI VIVEROS MD Nov 19, 2016 19:09
[2016-11-19 20:16] LABS: BILIRUBIN,URINE NEGATIVE (NEG); GLUCOSE,URINE NEGATIVE (NEG); PROTEIN,URINE NEGATIVE (NEG-TRACE)
[2016-11-19 20:27] LABS: RBC,URINE OCC /HPF (0-2); WBC,URINE 0 /HPF (0-4)
[2016-11-19 20:28] LABS: BACTERIA,URINE 0 /HPF (0-FEW); SQUAMOUS EPITHELIAL CELL,UR FEW /LPF
[2016-11-19 20:36] LABS: BASO # 0.1 x10^3/uL (0.0-0.2); BASO % 1 % (0-3); EOS % 2 % (0-3); HEMATOCRIT 34.2 % (36.0-47.0); HEMOGLOBIN 11.2 g/dL (12.0-15.5); LYMPH # 1.8 x10^3/uL (1.0-4.8); LYMPH % 30 % (24-48); MEAN CORPUSCULAR HEMOGLOBIN 29 pg (25-35); MEAN CORPUSCULAR HGB CONC 33 g/dL (31-37); MEAN CORPUSCULAR VOLUME 88 fL (79-100); MONO % 13 % (0-9); NEUT % 54 % (31-73); PLATELET COUNT 222 x10^3/uL (140-400); RED BLOOD COUNT 3.89 x10^6/uL (3.50-5.40); RED CELL DISTRIBUTION WIDTH 13.5 % (11.5-14.5); WHITE BLOOD COUNT 6.1 x10^3/uL (4.0-11.0)
[2016-11-19 20:54] LABS: CALCIUM 9.1 mg/dL (8.5-10.1); CREATININE 1.2 mg/dL (0.6-1.0); GFR 43.7; POTASSIUM 4.5 mmol/L (3.5-5.1)
[2016-11-19 20:58] LABS: ALBUMIN 3.6 g/dL (3.4-5.0); DIRECT BILIRUBIN 0.1 mg/dL (0.0-0.2); TOTAL BILIRUBIN 0.3 mg/dL (0.2-1.0); TOTAL PROTEIN 6.5 g/dL (6.4-8.2)
--- NOTE | 2016-11-19 22:07 | RAD ---
CT Abdomen and Pelvis without contrast History: Abdominal pain and urinary tract infection for 2 weeks, on antibiotics, painful urination Technique: Noncontrast CT imaging was performed of the abdomen and pelvis. Multiplanar images are reviewed. Exposure: One or more of the following individualized dose reduction techniques were utilized for this examination: 1. Automated exposure control 2. Adjustment of the mA and/or kV according to patient size 3. Use of iterative reconstruction technique. Comparison: October 21, 2016 Findings: Mild right pelvocaliectasis/very mild hydronephrosis is stable. Ureters are not dilated. No renal or ureteral calculi are identified. Accurate evaluation of the abdominal visceral organs is limited without intravenous contrast, no new focal abnormality of the pancreas or spleen. There is again 1.5 cm hypodense lesion of the left lobe of the liver, density measurements more suggestive of a cyst 17 Hounsfield units. Accurate evaluation of bowel is limited without oral contrast, no significant bowel dilatation or free air or free fluid. There is variable retained stool in the colon. There is again fat in the inguinal canals bilaterally, no bowel. There is moderate to severe lumbar levoscoliosis and multilevel variable lumbar degenerative disc disease, mild grade 1 anterior spondylolisthesis at L4-5. There is multilevel variable lumbar neural foramina compromise. There is coronary calcification. There is scattered atherosclerotic calcification of the abdominal aorta and iliac arteries bilaterally. Impression: 1. Mild right pelvocaliectasis/very mild right hydronephrosis is stable, no obstructive calculi identified. 2. There is variable between shoulder:. 3. There is again probable cyst of the left lobe of liver. 4. There is coronary calcification. 5. There is moderate to severe lumbar levoscoliosis, multilevel lumbar facet degenerative change and degenerative disc disease. Electronically signed by: Michael Camp MD (11/19/2016 10:04 PM) [facility]
[2016-11-19 22:30] VITALS: BP 176/85
[2017-02-06] MEDS ORDERED: PRED-220 PO (10:31)
[2017-02-06] MEDS ORDERED: LEVO500T59 PO (10:31)
[2017-02-06] MEDS ORDERED: FLUT12AE2 IH (10:31)
[2017-02-06] MEDS ORDERED: PROAIR HFA8.5 GM INH (10:31)
== END 2016-11-19 23:22 | disposition home or self-care (01) ==
LOC: ER 18:32
DX: R30.0 Dysuria (principal); G89.29 Other chronic pain; R10.30 Lower abdominal pain, unspecified; E78.00 Pure hypercholesterolemia, unspecified; I10 Essential (primary) hypertension; M32.9 Systemic lupus erythematosus, unspecified; Z86.73 Personal history of transient ischemic attack (TIA), and cerebral infarction without residual deficits; F31.9 Bipolar disorder, unspecified; Z88.2 Allergy status to sulfonamides; Z88.1 Allergy status to other antibiotic agents; Z88.6 Allergy status to analgesic agent
CPT/HCPCS: 36415; 74176; 80048; 80076; 81001; 85025; 99285-25

== ENCOUNTER 2017-02-04 15:10 | Inpatient (IN) | payer MEDICARE, OTHER ==
[~2017-02-04] VITALS: Ht 172.7 cm; Wt 97.6 kg
[2017-02-04] MEDS ORDERED: IPRATRPIUM/ALBUTEROL 0.5/2.5MG 3 ML NEBU. NEB ONE (16:45)
[2017-02-04 17:14] LABS: BASO # 0.1 x10^3/uL (0.0-0.2); BASO % 1 % (0-3); EOS % 1 % (0-3); HEMATOCRIT 38.4 % (36.0-47.0); HEMOGLOBIN 12.6 g/dL (12.0-15.5); LYMPH # 1.4 x10^3/uL (1.0-4.8); LYMPH % 24 % (24-48); MEAN CORPUSCULAR HEMOGLOBIN 29 pg (25-35); MEAN CORPUSCULAR HGB CONC 33 g/dL (31-37); MEAN CORPUSCULAR VOLUME 88 fL (79-100); MONO % 7 % (0-9); NEUT % 68 % (31-73); PLATELET COUNT 265 x10^3/uL (140-400); RED BLOOD COUNT 4.35 x10^6/uL (3.50-5.40); RED CELL DISTRIBUTION WIDTH 13.5 % (11.5-14.5); WHITE BLOOD COUNT 6.1 x10^3/uL (4.0-11.0)
[2017-02-04 17:24] LABS: CREATININE 1.1 mg/dL (0.6-1.0); GFR 48.3; POTASSIUM 4.2 mmol/L (3.5-5.1)
[2017-02-04 17:29] LABS: ALBUMIN 3.7 g/dL (3.4-5.0); DIRECT BILIRUBIN 0.2 mg/dL (0.0-0.2); TOTAL BILIRUBIN 0.4 mg/dL (0.2-1.0); TOTAL PROTEIN 6.8 g/dL (6.4-8.2)
[2017-02-04] MEDS ORDERED: methylPREDNISolone SOD SUCC PF 125 MG/2 ML VIAL. IV ONE (17:30)
--- NOTE | 2017-02-04 18:09 | PHYS DOC ---
Past Medical History Past Medical History: High Cholesterol, Hypertension Additional Past Medical Histor: ADVANCED LUPUS, SJOGRENS SYNDROME Past Surgical History: Cholecystectomy, Hysterectomy, Knee Replacement Additional Past Surgical Histo: LEFT FOOT Alcohol Use: None Drug Use: None Adult General Chief Complaint Chief Complaint: SHORTNESS OF BREATH HPI HPI 76-year-old female complaining of shortness of breath with cough for the last few days. She was given doxycycline and Tessalon Perles with minimal relief. It is worse with exertion. Nonradiating intermittent and not associated with sputum production. Review of systems is negative for fevers chills nausea or vomiting. All other review of systems is negative unless otherwise noted in history of present illness. ED course: 76-year-old female presenting with wheezing cough and shortness of breath. She is placed on oxygen in the emergency department and given nebulizers along with IV corticosteroids. Likely COPD exacerbation. EKG unremarkable. Chest x-ray not suggestive of pneumonia though poor inspiration. Patient is afebrile here. She shows significant wheezing bilaterally lungs. Troponin negative. Otherwise blood work unremarkable. The patient was then admitted to our hospital for further evaluation workup and care to Dr. Todd. I have assessed this patient clinically and believe that their condition requires an admission to the hospital. After consulting the admitting physician about this case, they have asked that I admit this patient to their service as an inpatient based on the clinical presentation and my impression. Review of Systems Review of Systems SEE ABOVE. Current Medications Current Medications Current Medications Medications (Trade) Dose Ordered Sig/Mary Start Time Stop Time Status Last Admin Dose Admin Albuterol/ Ipratropium (Duoneb) 3 ml 1X ONCE 02/04/17 16:45 02/04/17 16:47 DC 02/04/17 17:06 3 ML Allergies Allergies Allergies Coded Allergies Type Severity Reaction Last Updated Verified Sulfa (Sulfonamide Antibiotics) Adverse Reaction Intermediate NAUSEA AND VOMITING 03/25/15 Yes cephalexin Adverse Reaction Intermediate VOMITING 03/25/15 Yes tramadol Adverse Reaction Intermediate DIZZINESS 03/25/15 Yes Physical Exam Physical Exam SEE ABOVE Constitutional: Well developed, well nourished, no acute distress, non-toxic appearance. [] HENT: Normocephalic, atraumatic, bilateral external ears normal, oropharynx moist, no oral exudates, nose normal. Eyes: PERRLA, EOMI, conjunctiva normal, no discharge. [] Neck: Normal range of motion, no tenderness, supple, no stridor. [] Cardiovascular:Heart rate regular rhythm, no murmur Lungs & Thorax: SEE ABOVE Abdomen: Bowel sounds normal, soft, no tenderness, no masses, no pulsatile masses. Skin: Warm, dry, no erythema, no rash. [] Back: No tenderness, no CVA tenderness. [] Extremities: No tenderness, no cyanosis, no clubbing, ROM intact, no edema. Neurologic: Alert and oriented X 3, normal motor function, normal sensory function, no focal deficits noted. [] Psychologic: Affect normal, judgement normal, mood normal. [] Current Patient Data Vital Signs Vital Signs Date Time Temp Pulse Resp B/P (MAP) Pulse Ox O2 Delivery O2 Flow Rate FiO2 02/04/17 17:20 64 168/76 (106) 92 2.0 02/04/17 17:07 Nasal Cannula 02/04/17 16:50 35 02/04/17 16:23 98.4 98.4 Lab Values Laboratory Tests Test 02/04/17 17:00 White Blood Count 6.1 x10^3/uL (4.0-11.0) Red Blood Count 4.35 x10^6/uL (3.50-5.40) Hemoglobin 12.6 g/dL (12.0-15.5) Hematocrit 38.4 % (36.0-47.0) Mean Corpuscular Volume 88 fL (79-100) Mean Corpuscular Hemoglobin 29 pg (25-35) Mean Corpuscular Hemoglobin Concent 33 g/dL (31-37) Red Cell Distribution Width 13.5 % (11.5-14.5) Platelet Count 265 x10^3/uL (140-400) Neutrophils (%) (Auto) 68 % (31-73) Lymphocytes (%) (Auto) 24 % (24-48) Monocytes (%) (Auto) 7 % (0-9) Eosinophils (%) (Auto) 1 % (0-3) Basophils (%) (Auto) 1 % (0-3) Neutrophils # (Auto) 4.1 x10^3uL (1.8-7.7) Lymphocytes # (Auto) 1.4 x10^3/uL (1.0-4.8) Monocytes # (Auto) 0.4 x10^3/uL (0.0-1.1) Eosinophils # (Auto) 0.0 x10^3/uL (0.0-0.7) Basophils # (Auto) 0.1 x10^3/uL (0.0-0.2) Sodium Level 140 mmol/L (136-145) Potassium Level 4.2 mmol/L (3.5-5.1) Chloride Level 103 mmol/L (98-107) Carbon Dioxide Level 28 mmol/L (21-32) Anion Gap 9 (6-14) Blood Urea Nitrogen 19 mg/dL (7-20) Creatinine 1.1 mg/dL (0.6-1.0) H Estimated GFR (Cockcroft-Gault) 48.3 Glucose Level 112 mg/dL (70-99) H Calcium Level 9.0 mg/dL (8.5-10.1) Total Bilirubin 0.4 mg/dL (0.2-1.0) Direct Bilirubin 0.2 mg/dL (0.0-0.2) Aspartate Amino Transferase (AST) 25 U/L (15-37) Alanine Aminotransferase (ALT) 26 U/L (14-59) Alkaline Phosphatase 40 U/L (46-116) L Troponin I Quantitative < 0.017 ng/mL (0.000-0.055) LD-Fye-P-Type Natriuretic Peptide 874 pg/mL (0-449) H Total Protein 6.8 g/dL (6.4-8.2) Albumin 3.7 g/dL (3.4-5.0) Lipase 75 U/L (73-393) Laboratory Tests 02/04/17 17:00 Laboratory Tests 02/04/17 17:00 EKG EKG EKG shows sinus rhythm with regular rate. ST segments congruent. Not suggestive of ACS.[] Radiology/Procedures Radiology/Procedures [] Course & Med Decision Making Course & Med Decision Making Pertinent Labs and Imaging studies reviewed. (See chart for details) [] Dragon Disclaimer Dragon Disclaimer This electronic medical record was generated, in whole or in part, using a voice recognition dictation system. Departure Departure Impression: Primary Impression: COPD exacerbation Disposition: ADMITTED INPATIENT Admitting Physician: Abner Todd Condition: STABLE Referrals: CLIFTON ADAME MD (PCP) JULIANNA HOLCOMB MD Feb 04, 2017 18:09
[2017-02-04] MEDS ORDERED: ONDANSETRON PF 4 MG/2 ML VIAL. IV PRN (18:30)
[2017-02-04] MEDS ORDERED: MORPHINE SULFATE 2 MG/ML DISP.SYRIN. IV PRN (18:30)
[2017-02-04 19:00] VITALS: BP 151/71
[2017-02-04] MEDS ORDERED: POLY17PO29 PO (19:49)
[2017-02-04] MEDS ORDERED: FENO160T PO (19:49)
[2017-02-04] MEDS ORDERED: PRED2.5T PO (19:49)
[2017-02-04] MEDS ORDERED: OXYB10TA PO (19:49)
[2017-02-04] MEDS ORDERED: HYDR200T PO (19:49)
[2017-02-04] MEDS ORDERED: HYDR-971 PO ×2 (19:49)
[2017-02-04] MEDS ORDERED: CHOL500051 PO (19:56)
[2017-02-04] MEDS ORDERED: [UNRECOGNIZED DRUG - OTHER] IJ (19:56)
[2017-02-04] MEDS ORDERED: CYANOCOBALAMIN IJ (19:56)
[2017-02-04] MEDS: IPRATRPIUM/ALBUTEROL 0.5/2.5MG 3 ML NEBU. NEB SCH (19:59)
[2017-02-04] MEDS ORDERED: ESTR42.53 VG (20:00)
[2017-02-04] MEDS ORDERED: NON FORMULARY ITEM (Ibandronate Sodium (Boniva) 150 MG) PO SCH (20:15)
[2017-02-04] MEDS ORDERED: ALBUTEROL SULFATE 2.5 MG/3 ML NEBU. NEB PRN (20:15)
[2017-02-04] MEDS ORDERED: HYDROXYCHLOROQUINE 200 MG TABLET PO SCH (21:00)
[2017-02-04] MEDS: POLYETHYLENE GLYCOL 3350 17 GM PACKET. PO SCH (21:26)
[2017-02-04] MEDS: HYDROXYCHLOROQUINE 200 MG TABLET PO SCH (21:27)
[2017-02-04] MEDS: lamoTRIgine 100 MG TABLET. PO SCH (21:27)
[2017-02-04] MEDS: GABAPENTIN 300 MG CAPSULE. PO SCH (21:27)
[2017-02-04] MEDS: FENOFIBRATE,MICRONIZED 134 MG CAPSULE PO SCH (21:27)
[2017-02-04] MEDS: OXYBUTYNIN CHLORIDE 5 MG TABLET PO SCH (21:27)
[2017-02-04] MEDS: CYCLOBENZAPRINE 10 MG TABLET. PO SCH (21:27)
[2017-02-04] MEDS: QUEtiapine 100 MG TABLET. PO SCH (21:28)
[2017-02-04] MEDS: methylPREDNISolone SOD SUCC PF 125 MG/2 ML VIAL. IV SCH (22:17)
[2017-02-04] MEDS ORDERED: PROMETH/CODEINE 6.25/10MG 5 ML SYRUP. PO PRN (22:45)
[2017-02-04] MEDS: PROMETH/CODEINE 6.25/10MG 5 ML SYRUP. PO PRN (22:47)
[2017-02-04 22:55] VITALS: BP 139/80
[2017-02-05 03:00] VITALS: BP 117/45
[2017-02-05 05:34] LABS: BASO % 0 % (0-3); EOS % 0 % (0-3); HEMATOCRIT 37.7 % (36.0-47.0); HEMOGLOBIN 12.2 g/dL (12.0-15.5); LYMPH # 0.5 x10^3/uL (1.0-4.8); LYMPH % 13 % (24-48); MEAN CORPUSCULAR HEMOGLOBIN 29 pg (25-35); MEAN CORPUSCULAR HGB CONC 32 g/dL (31-37); MEAN CORPUSCULAR VOLUME 89 fL (79-100); MONO % 1 % (0-9); NEUT % 85 % (31-73); PLATELET COUNT 248 x10^3/uL (140-400); RED BLOOD COUNT 4.24 x10^6/uL (3.50-5.40); RED CELL DISTRIBUTION WIDTH 12.9 % (11.5-14.5); WHITE BLOOD COUNT 3.8 x10^3/uL (4.0-11.0)
[2017-02-05 05:59] LABS: CALCIUM 8.8 mg/dL (8.5-10.1); CREATININE 1.3 mg/dL (0.6-1.0); GFR 39.8; POTASSIUM 4.2 mmol/L (3.5-5.1)
[2017-02-05] MEDS: HYDROcodone/APAP 5/325MG 1 TAB TABLET PO SCH ×5 (06:17→23:51)
[2017-02-05] MEDS: methylPREDNISolone SOD SUCC PF 125 MG/2 ML VIAL. IV SCH ×3 (06:17→21:54)
[2017-02-05] MEDS: PANTOPRAZOLE 40 MG TABLET.DR. PO SCH (06:19)
[2017-02-05] MEDS: IPRATRPIUM/ALBUTEROL 0.5/2.5MG 3 ML NEBU. NEB SCH ×4 (06:56→19:54)
[2017-02-05 07:00] VITALS: BP 117/41
[2017-02-05 07:33] LABS: PLT ESTIMATE ADEQUATE (ADEQUATE)
[2017-02-05] MEDS: FLUTICASONE 50MCG/NASAL SPRAY 16GM BOTTLE. NS SCH (08:44)
[2017-02-05] MEDS: OXYBUTYNIN CHLORIDE 5 MG TABLET PO SCH ×2 (08:45→21:58)
[2017-02-05] MEDS: lamoTRIgine 100 MG TABLET. PO SCH ×2 (08:45→21:59)
[2017-02-05] MEDS: FUROSEMIDE 40 MG TABLET. PO SCH (08:45)
[2017-02-05] MEDS: GABAPENTIN 300 MG CAPSULE. PO SCH ×2 (08:45→22:01)
[2017-02-05] MEDS: DULoxetine HCL 30 MG CAPSULE.DR PO SCH (08:45)
[2017-02-05] MEDS: HYDROXYCHLOROQUINE 200 MG TABLET PO SCH ×2 (08:45→21:59)
[2017-02-05] MEDS: CYCLOBENZAPRINE 10 MG TABLET. PO SCH (08:45)
[2017-02-05] MEDS: cycloSPORINE 0.05% OPTH 1 DROP DROPERETTE OU SCH (08:45)
[2017-02-05] MEDS: LISINOPRIL 20 MG TABLET PO SCH (08:46)
--- NOTE | 2017-02-05 09:13 | CONS ---
DATE OF CONSULTATION: PULMONARY CONSULTATION ATTENDING PHYSICIAN: Dr. Todd. REASON FOR CONSULTATION: Cough. HISTORY OF PRESENT ILLNESS: The patient is a pleasant 76-year-old female who has no significant history of tobacco use. She is not on home oxygen. She presented to the hospital with 10 days of cough which has been nonproductive. The patient has history of lupus for which she is chronically on prednisone and also takes Plaquenil. The patient says that she always has wheezing. She never had a diagnosis of asthma. She had no fever, no chills. No history of deep vein thrombosis or pulmonary embolism. Currently, she is requiring 1 liter of oxygen. The patient was seen in the Emergency Room. Her oxygen saturations were low. As a result, she was hospitalized. I have reviewed the patient's chest x-ray; it was a poor inspiratory film. There is possible faint lower lobe infiltrate versus atelectasis and may be some subsegmental atelectasis in the right base. The patient was started on IV steroids along with bronchodilators and I have been asked to see her for further evaluation. PAST MEDICAL HISTORY: Significant for lupus, history of Sjogren syndrome. No significant history of tobacco use. Possible history of reactive airway disease, history of dyslipidemia and hypertension. PAST SURGICAL HISTORY: Cholecystectomy, hysterectomy, knee replacement and left foot surgery. ALLERGIES: SULFA, CEPHALEXIN AND TRAMADOL. REVIEW OF SYSTEMS: Twelve-point system obtained. Pertinent positives discussed in my history of present illness, otherwise noncontributory. All systems that were negative were reviewed as well. MEDICATIONS: All reviewed as listed in the MRAD, including cyclosporine. She is on IV Solu-Medrol and DuoNebs. Not on any antibiotics. SOCIAL HISTORY: Nonsmoker. FAMILY HISTORY: Noncontributory to lungs. PHYSICAL EXAMINATION: VITAL SIGNS: T-max of 100.2. Blood pressure stable. Pulse ox 92% on 2 liters. HEENT: Sclerae nonicteric. NECK: Supple. LUNGS: Clear. CARDIOVASCULAR EXAMINATION: Regular rate and rhythm. ABDOMEN: Soft, nontender. EXTREMITIES: With trace pitting edema. LABORATORY DATA: Labs were reviewed. White cell count 3.8, hemoglobin 12.2 and platelets are 248,000. Chest x-ray findings discussed in my history of present illness. IMPRESSION: 1. Persistent cough for last the 10 days with fever. I suspect community-acquired pneumonia. However, she is an immunocompromised patient and opportunistic infection would certainly be in consideration if clinically it does not improve. 2. No significant history of tobacco use, but possible reactive airway disease as she gives history of chronic wheezes. 3. History of lupus and Sjogren syndrome, on cyclosporine and chronic prednisone 2.5 mg daily; currently on IV Solu-Medrol. 4. Abnormal chest x-ray with possible infiltrate at the bases. We will obtain noncontrast CT chest to better assess for parenchymal infiltrates. 5. Mild leukopenia, could be infectious induced. 6. Acute kidney injury, probably related to dehydration. RECOMMENDATIONS: 1. Add antibiotics. 2. Noncontrast CT chest to rule out any parenchymal infiltrates, especially at the bases. 3. Bronchodilators. 4. Continue IV steroids, and at discharge, should be placed on her home oral prednisone. 5. Continue oxygen at a flow of 1-2 liters, keep saturation 92% and above. 6. Further recommendations to follow after review of the CT chest. ABY HUBBARD MD DR: SOPHIA/harriet JOB#: [id number] / [id number] DALI Hager MD
[2017-02-05] MEDS ORDERED: BACL10TA PO (09:38)
[2017-02-05] MEDS: ENOXAPARIN 40 MG/0.4 ML SYRINGE. SQ SCH ×2 (09:52→21:55)
[2017-02-05] MEDS: BACLOFEN 10 MG TABLET. PO SCH ×3 (09:55→22:00)
[2017-02-05 11:00] VITALS: BP 129/61
--- NOTE | 2017-02-05 11:06 | HP ---
ADMIT DATE: 02/04/2017 CHIEF COMPLAINT: Shortness of breath. HISTORY OF PRESENT ILLNESS AND HOSPITAL COURSE: This patient is a 76-year-old female who lives at [facility] with her who requires near total care due to dementia and chronic back pain, came to the hospital with increasing shortness of breath for several days. She was treated as an outpatient with antibiotics and cough medicine, but her shortness of breath became worse and came to the Emergency Room for further evaluation. She denied fever, chills or productive cough. During ER evaluation, the patient was found to have low oxygen saturations and evidence of respiratory failure. Therefore, she was admitted for exacerbation of presumed COPD with IV steroids and routine breathing treatments. PAST MEDICAL HISTORY: Significant for: 1. Hypertension. 2. Chronic kidney disease with baseline creatinine of 0.93. 3. High cholesterol. 4. Sjogren syndrome. 5. Rheumatoid arthritis. 6. Aortic stenosis. 7. Anxiety and depression. 8. Scoliosis. 9. Pernicious anemia. PAST SURGICAL HISTORY: Significant for toe surgery 2014, cholecystectomy 1980, hysterectomy in 1979, knee surgery in 2006 and 2008, sigmoid resection in 2009, foot surgery in 2010 and 2014, tonsillectomy in 1963. FAMILY HISTORY: Mother with complications of a CVA, also had bipolar disease and anorexia. Father with liver disease from alcoholism. She has a son with type 2 diabetes. SOCIAL HISTORY: The patient states she has never smoked. The patient states she is a former alcoholic, but quit 35 years ago. The patient is . ALLERGIES: The patient exhibits allergies to SULFA, KEFLEX, TRAMADOL, CLINDAMYCIN and VANCOMYCIN. REVIEW OF SYSTEMS: The patient has been doing well until recent illness. She denies any fever, nausea, vomiting, diarrhea. She has had no significant weight loss, weight gain. PHYSICAL EXAMINATION: GENERAL: This is a mildly obese female who is alert and oriented x 3. HEENT: Benign. NECK: Supple. CARDIAC: Regular rate and rhythm. LUNGS: Revealed rare wheezes on expiration. ABDOMEN: Soft and nontender, without masses. EXTREMITIES: There are 2+ pulses without significant edema. NEUROLOGIC: Showed no unilateral findings. ASSESSMENT: 1. Acute on chronic respiratory failure. 2. Acute on chronic renal failure. 3. Chronic obstructive pulmonary disease exacerbation. 4. Chronic back and knee pain. PLAN: To proceed with pulmonary toilet in the form of breathing treatments, IV antibiotics, obtain CAT scan to rule out PE and occult pneumonia, proceed with PT and OT modalities. DALI SINCLAIR MD DR: FAUSTINA/harriet JOB#: [id number] / [id number]
[2017-02-05] MEDS: PROMETH/CODEINE 6.25/10MG 5 ML SYRUP. PO PRN ×2 (11:35→15:44)
--- NOTE | 2017-02-05 12:09 | RAD ---
AP PORTABLE CHEST Clinical Indication: soa. Comparison: None. Findings: The cardiomediastinal silhouette is normal. Elevation of right hemidiaphragm. Lungs are clear. There is no pneumothorax. No pleural effusion is appreciated. S-shaped thoracolumbar scoliosis. IMPRESSION: No acute cardiopulmonary process.
[2017-02-05 15:00] VITALS: BP 136/59
[2017-02-05] MEDS ORDERED: HYDROcodone/APAP 5/325MG 1 TAB TABLET PO SCH (16:00)
--- NOTE | 2017-02-05 16:37 | RAD ---
PQRS Compliance Statement: One or more of the following individualized dose reduction techniques were utilized for this examination: 1. Automated exposure control 2. Adjustment of the mA and/or kV according to patient size 3. Use of iterative reconstruction technique CT CHEST WO CONTRAST Clinical Indication: basal pneumonia Comparison: None. Technique: Helical CT imaging of the chest is performed without IV contrast. Findings: No mediastinal adenopathy. Limited evaluation of the sandra without IV contrast. Elevation of right hemidiaphragm. Calcific aortic valve stenosis. Three-vessel coronary artery disease. Cardiac size normal. No significant pericardial effusion. The central airways are patent. 2 mm nodule in the anterior right upper lobe, image 21. There is compressive atelectasis in the right lower lobe adjacent to the elevated right hemidiaphragm. There is minimal discoid atelectasis in the left lower lobe and lingula. Lungs otherwise clear. No pleural effusion. There is a 14 mm cyst in segment 2 of the liver. Visualized upper abdomen otherwise unremarkable. There is moderate left convexity lower thoracic and lumbar scoliosis. IMPRESSION: Moderate elevation of right hemidiaphragm. There is scarring or chronic atelectasis in the adjacent right lower lobe.
[2017-02-05 19:00] VITALS: BP 135/59
[2017-02-05] MEDS ORDERED: IPRATRPIUM/ALBUTEROL 0.5/2.5MG 3 ML NEBU. ONE (19:16)
[2017-02-05] MEDS: POLYETHYLENE GLYCOL 3350 17 GM PACKET. PO SCH (21:56)
[2017-02-05] MEDS: LACTOBACILLUS RHAMNOSUS GG 1 CAPSULE. PO SCH (21:57)
[2017-02-05] MEDS: QUEtiapine 100 MG TABLET. PO SCH (21:59)
[2017-02-05] MEDS: FENOFIBRATE,MICRONIZED 134 MG CAPSULE PO SCH (22:06)
[2017-02-05 22:58] VITALS: BP 121/50
[2017-02-06 03:00] VITALS: BP 119/51
[2017-02-06] MEDS: methylPREDNISolone SOD SUCC PF 125 MG/2 ML VIAL. IV SCH (06:04)
[2017-02-06] MEDS: PANTOPRAZOLE 40 MG TABLET.DR. PO SCH (06:05)
[2017-02-06] MEDS: HYDROcodone/APAP 5/325MG 1 TAB TABLET PO SCH ×2 (06:05→11:17)
[2017-02-06 06:37] LABS: BASO % 0 % (0-3); EOS % 0 % (0-3); HEMATOCRIT 35.8 % (36.0-47.0); HEMOGLOBIN 11.9 g/dL (12.0-15.5); LYMPH # 0.6 x10^3/uL (1.0-4.8); LYMPH % 6 % (24-48); MEAN CORPUSCULAR HEMOGLOBIN 29 pg (25-35); MEAN CORPUSCULAR HGB CONC 33 g/dL (31-37); MEAN CORPUSCULAR VOLUME 88 fL (79-100); MONO % 2 % (0-9); NEUT % 92 % (31-73); PLATELET COUNT 266 x10^3/uL (140-400); RED BLOOD COUNT 4.07 x10^6/uL (3.50-5.40); RED CELL DISTRIBUTION WIDTH 13.2 % (11.5-14.5); WHITE BLOOD COUNT 9.4 x10^3/uL (4.0-11.0)
[2017-02-06 07:38] VITALS: BP 118/65
[2017-02-06] MEDS: cycloSPORINE 0.05% OPTH 1 DROP DROPERETTE OU SCH (08:50)
[2017-02-06] MEDS: FLUTICASONE 50MCG/NASAL SPRAY 16GM BOTTLE. NS SCH (08:50)
[2017-02-06] MEDS: OXYBUTYNIN CHLORIDE 5 MG TABLET PO SCH (08:51)
[2017-02-06] MEDS: DULoxetine HCL 30 MG CAPSULE.DR PO SCH (08:51)
[2017-02-06] MEDS: LACTOBACILLUS RHAMNOSUS GG 1 CAPSULE. PO SCH (08:51)
[2017-02-06] MEDS: FUROSEMIDE 40 MG TABLET. PO SCH (08:51)
[2017-02-06 08:52] VITALS: BP 118/65
[2017-02-06] MEDS: LISINOPRIL 20 MG TABLET PO SCH (08:52)
[2017-02-06] MEDS: GABAPENTIN 300 MG CAPSULE. PO SCH (08:52)
[2017-02-06] MEDS: BACLOFEN 10 MG TABLET. PO SCH (08:52)
[2017-02-06] MEDS: lamoTRIgine 100 MG TABLET. PO SCH (08:52)
[2017-02-06] MEDS: HYDROXYCHLOROQUINE 200 MG TABLET PO SCH (08:52)
[2017-02-06 09:12] LABS: PLT ESTIMATE ADEQUATE (ADEQUATE)
[2017-02-06 09:14] LABS: CALCIUM 8.6 mg/dL (8.5-10.1); GFR 53.9; POTASSIUM 4.5 mmol/L (3.5-5.1)
[2017-02-06] MEDS ORDERED: FLUT12AE2 IH (10:31)
[2017-02-06] MEDS ORDERED: PROAIR HFA8.5 GM INH (10:31)
[2017-02-06] MEDS ORDERED: PRED-220 PO (10:31)
[2017-02-06] MEDS ORDERED: LEVO500T59 PO (10:31)
--- NOTE | 2017-02-06 10:32 | PDOC ---
PULMONARY PROGRESS NOTES Subjective no soa feels better Vitals Vital Signs Date Time Temp Pulse Resp B/P (MAP) Pulse Ox O2 Delivery O2 Flow Rate FiO2 02/06/17 08:52 69 118/65 02/06/17 08:00 Room Air 02/06/17 07:38 98.5 18 92 98.5 02/06/17 06:05 1.0 ROS: No Nausea, No Chest Pain, No Abdominal Pain, No Increase Cough General: Alert, No acute distress, Confused Lungs: Clear Cardiovascular: S1, S2 Abdomen: Soft Neuro Exam: Alert Extremities: No Edema Labs Laboratory Tests Test 02/04/17 17:00 02/05/17 05:00 02/06/17 04:05 02/06/17 08:50 White Blood Count 6.1 x10^3/uL (4.0-11.0) 3.8 x10^3/uL (4.0-11.0) 9.4 x10^3/uL (4.0-11.0) Red Blood Count 4.35 x10^6/uL (3.50-5.40) 4.24 x10^6/uL (3.50-5.40) 4.07 x10^6/uL (3.50-5.40) Hemoglobin 12.6 g/dL (12.0-15.5) 12.2 g/dL (12.0-15.5) 11.9 g/dL (12.0-15.5) Hematocrit 38.4 % (36.0-47.0) 37.7 % (36.0-47.0) 35.8 % (36.0-47.0) Mean Corpuscular Volume 88 fL (79-100) 89 fL (79-100) 88 fL (79-100) Mean Corpuscular Hemoglobin 29 pg (25-35) 29 pg (25-35) 29 pg (25-35) Mean Corpuscular Hemoglobin Concent 33 g/dL (31-37) 32 g/dL (31-37) 33 g/dL (31-37) Red Cell Distribution Width 13.5 % (11.5-14.5) 12.9 % (11.5-14.5) 13.2 % (11.5-14.5) Platelet Count 265 x10^3/uL (140-400) 248 x10^3/uL (140-400) 266 x10^3/uL (140-400) Neutrophils (%) (Auto) 68 % (31-73) 85 % (31-73) 92 % (31-73) Lymphocytes (%) (Auto) 24 % (24-48) 13 % (24-48) 6 % (24-48) Monocytes (%) (Auto) 7 % (0-9) 1 % (0-9) 2 % (0-9) Eosinophils (%) (Auto) 1 % (0-3) 0 % (0-3) 0 % (0-3) Basophils (%) (Auto) 1 % (0-3) 0 % (0-3) 0 % (0-3) Neutrophils # (Auto) 4.1 x10^3uL (1.8-7.7) 3.3 x10^3uL (1.8-7.7) 8.6 x10^3uL (1.8-7.7) Lymphocytes # (Auto) 1.4 x10^3/uL (1.0-4.8) 0.5 x10^3/uL (1.0-4.8) 0.6 x10^3/uL (1.0-4.8) Monocytes # (Auto) 0.4 x10^3/uL (0.0-1.1) 0.0 x10^3/uL (0.0-1.1) 0.2 x10^3/uL (0.0-1.1) Eosinophils # (Auto) 0.0 x10^3/uL (0.0-0.7) 0.0 x10^3/uL (0.0-0.7) 0.0 x10^3/uL (0.0-0.7) Basophils # (Auto) 0.1 x10^3/uL (0.0-0.2) 0.0 x10^3/uL (0.0-0.2) 0.0 x10^3/uL (0.0-0.2) Sodium Level 140 mmol/L (136-145) 138 mmol/L (136-145) 136 mmol/L (136-145) Potassium Level 4.2 mmol/L (3.5-5.1) 4.2 mmol/L (3.5-5.1) 4.5 mmol/L (3.5-5.1) Chloride Level 103 mmol/L (98-107) 101 mmol/L (98-107) 102 mmol/L (98-107) Carbon Dioxide Level 28 mmol/L (21-32) 26 mmol/L (21-32) 26 mmol/L (21-32) Anion Gap 9 (6-14) 11 (6-14) 8 (6-14) Blood Urea Nitrogen 19 mg/dL (7-20) 21 mg/dL (7-20) 22 mg/dL (7-20) Creatinine 1.1 mg/dL (0.6-1.0) 1.3 mg/dL (0.6-1.0) 1.0 mg/dL (0.6-1.0) Estimated GFR (Cockcroft-Gault) 48.3 39.8 53.9 Glucose Level 112 mg/dL (70-99) 167 mg/dL (70-99) 186 mg/dL (70-99) Calcium Level 9.0 mg/dL (8.5-10.1) 8.8 mg/dL (8.5-10.1) 8.6 mg/dL (8.5-10.1) Total Bilirubin 0.4 mg/dL (0.2-1.0) Direct Bilirubin 0.2 mg/dL (0.0-0.2) Aspartate Amino Transf (AST/SGOT) 25 U/L (15-37) Alanine Aminotransferase (ALT/SGPT) 26 U/L (14-59) Alkaline Phosphatase 40 U/L (46-116) Troponin I Quantitative < 0.017 ng/mL (0.000-0.055) VT-Yiy-K-Type Natriuretic Peptide 874 pg/mL (0-449) Total Protein 6.8 g/dL (6.4-8.2) Albumin 3.7 g/dL (3.4-5.0) Lipase 75 U/L (73-393) Segmented Neutrophils % 90 % (35-66) 88 % (35-66) Band Neutrophils % 1 % (0-9) 2 % (0-9) Lymphocytes % 9 % (24-48) 6 % (24-48) Platelet Estimate Adequate (ADEQUATE) Adequate (ADEQUATE) Atypical Lymphocytes % (Manual) 1 % (0-0) Monocytes % 3 % (0-10) Laboratory Tests Test 02/06/17 04:05 02/06/17 08:50 White Blood Count 9.4 x10^3/uL (4.0-11.0) Red Blood Count 4.07 x10^6/uL (3.50-5.40) Hemoglobin 11.9 g/dL (12.0-15.5) Hematocrit 35.8 % (36.0-47.0) Mean Corpuscular Volume 88 fL (79-100) Mean Corpuscular Hemoglobin 29 pg (25-35) Mean Corpuscular Hemoglobin Concent 33 g/dL (31-37) Red Cell Distribution Width 13.2 % (11.5-14.5) Platelet Count 266 x10^3/uL (140-400) Neutrophils (%) (Auto) 92 % (31-73) Lymphocytes (%) (Auto) 6 % (24-48) Monocytes (%) (Auto) 2 % (0-9) Eosinophils (%) (Auto) 0 % (0-3) Basophils (%) (Auto) 0 % (0-3) Neutrophils # (Auto) 8.6 x10^3uL (1.8-7.7) Lymphocytes # (Auto) 0.6 x10^3/uL (1.0-4.8) Monocytes # (Auto) 0.2 x10^3/uL (0.0-1.1) Eosinophils # (Auto) 0.0 x10^3/uL (0.0-0.7) Basophils # (Auto) 0.0 x10^3/uL (0.0-0.2) Segmented Neutrophils % 88 % (35-66) Band Neutrophils % 2 % (0-9) Lymphocytes % 6 % (24-48) Atypical Lymphocytes % (Manual) 1 % (0-0) Monocytes % 3 % (0-10) Platelet Estimate Adequate (ADEQUATE) Sodium Level 136 mmol/L (136-145) Potassium Level 4.5 mmol/L (3.5-5.1) Chloride Level 102 mmol/L (98-107) Carbon Dioxide Level 26 mmol/L (21-32) Anion Gap 8 (6-14) Blood Urea Nitrogen 22 mg/dL (7-20) Creatinine 1.0 mg/dL (0.6-1.0) Estimated GFR (Cockcroft-Gault) 53.9 Glucose Level 186 mg/dL (70-99) Calcium Level 8.6 mg/dL (8.5-10.1) Medications Active Scripts Medications Dose Route/Sig Max Daily Dose Days Date Category Baclofen 10 Mg Tablet 1 Tab PO TID 02/05/17 Reported Estrace (Estradiol) 42.5 Gm Cream.appl 1 Gm VG TWICE WEEKLY 02/04/17 Reported [Vit b 12 inj/month] 1,000 Intlu IJ 02/04/17 Reported Vitamin D (Cholecalciferol (Vitamin D3)) 5,000 Unit Capsule 5,000 Unit PO QWE 02/04/17 Reported Miralax (Polyethylene Glycol 3350) 17 Gm Powd.pack 1 Packet PO HS 02/04/17 Reported Prednisone 2.5 Mg Tablet 5 Mg PO DAILY 02/04/17 Reported Plaquenil (Hydroxychloroquine Sulfate) 200 Mg Tablet 200 Mg PO BID 02/04/17 Reported [place] 5-325 Tablet (Acetaminophen/Hydrocodone Bitart) 1 Each Tablet 1 Tab PO DAILY16 02/04/17 Reported [place] 5-325 Tablet (Acetaminophen/Hydrocodone Bitart) 1 Each Tablet 1 Tab PO Q6HRS 02/04/17 Reported Oxybutynin Chloride Er (Oxybutynin Chloride) 10 Mg Tab.er.24 1 Tab PO HS 02/04/17 Reported Fenofibrate 160 Mg Tablet 1 Tab PO HS 02/04/17 Reported Boniva (Ibandronate Sodium) 150 Mg Tablet 150 Mg PO MONTHLY 03/25/15 Reported Restasis (Cyclosporine) 1 Each Droperette 1 Each OP DAILY 01/29/15 Reported Flonase Allergy Relief (Fluticasone Propionate) 9.9 Ml [place].susp 2 Sprays NS DAILY 01/29/15 Reported Prednisone 1 Mg Tablet 5 Mg PO DAILY 01/29/15 Reported Plaquenil (Hydroxychloroquine Sulfate) 200 Mg Tablet 200 Mg PO BID 01/29/15 Reported Nitrofurantoin (Nitrofurantoin Macrocrystal) 100 Mg Capsule 1 Cap PO DAILY 01/29/15 Reported Pantoprazole Sodium 40 Mg Tablet.dr 1 Tab PO DAILY 01/29/15 Reported Lisinopril 20 Mg Tablet 1 Tab PO DAILY 01/29/15 Reported Furosemide 40 Mg Tablet 1 Tab PO DAILY 01/29/15 Reported Seroquel (Quetiapine Fumarate) 300 Mg Tablet 1 Tab PO QHS 01/29/15 Reported Neurontin (Gabapentin) 300 Mg Capsule 300 Mg PO BID 01/29/15 Reported Lamictal (Lamotrigine) 100 Mg Tablet 1 Tab PO BID 01/29/15 Reported Cymbalta (Duloxetine Hcl) 60 Mg Capsule.dr 1 Cap PO DAILY 01/29/[address] CHEST Moderate elevation of right hemidiaphragm. There is scarring or chronic atelectasis in the adjacent right lower lobe. Impression . 1. Persistent cough for last the 10 days with fever. I suspect community-acquired pneumonia. However, she is an immunocompromised patient and opportunistic infection would certainly be in consideration if clinically it does not improve. 2. No significant history of tobacco use, but possible reactive airway disease as she gives history of chronic wheezes. 3. History of lupus and Sjogren syndrome, on cyclosporine and chronic prednisone 2.5 mg daily; currently on IV Solu-Medrol. 4. Abnormal chest x-ray with possible infiltrate at the bases. 5. Mild leukopenia, could be infectious induced. RESOLVED 6. Acute kidney injury, probably related to dehydration.RESOLVED Plan . 1. antibiotics. 2. CT chest with RLL basal infiltrate vs atelectasis 3. Bronchodilators. 4. steroids, and at discharge, should be placed on her home oral prednisone. 5. Continue oxygen at a flow of 1-2 liters, keep saturation 92% and above. 6. clinically better, can go home today ABY HUBBARD MD Feb 06, 2017 10:32
--- NOTE | 2017-02-06 14:20 | DS ---
DATE OF DISCHARGE: 02/06/2017 ADMITTING DIAGNOSIS: Acute on chronic respiratory failure. SECONDARY DIAGNOSES: 1. Acute on chronic renal failure. 2. Chronic obstructive pulmonary disease exacerbation. 3. Bronchitis. 4. Chronic back and knee pain. 5. Hypertension. 6. Rheumatoid arthritis. 7. Sjogren syndrome. 8. Systemic lupus erythematosus. 9. Aortic stenosis. 10. Scoliosis. 11. Pernicious anemia. 12. Anxiety and depression. HISTORY OF PRESENT ILLNESS AND HOSPITAL COURSE: This patient is a 76-year-old female who came to the hospital with increasing shortness of breath. She was found to be hypoxic, most likely due to exacerbation of chronic obstructive pulmonary disease. The patient was also found to be in acute on chronic renal failure. She was treated with IV fluids, pulmonary toilet and IV steroids as well as IV antibiotics for possible infectious bronchitis. She improved within the first 48 hours to the point where she was satting without oxygen 92%. She was able to ambulate short distances and was back to baseline; therefore, she was discharged to home on her previous home medications with addition of Levaquin for 5 more days of 500 mg daily and prednisone taper starting at 50 mg tapering by 10 mg every other day until off, to continue her long list of chronic medications and follow up in the office in 1-2 weeks. DALI SINCLAIR MD DR: FAUSTINA/harriet JOB#: [id number] / [id number]
--- NOTE | 2017-02-07 13:00 | EKG ---
[facility] [address] [place] [address] Test Date: 2017-02-04 Test Time: 17:35:14 Pat Name: GLENIS DOAN Department: Room: Gender: F Registered Nurse Cardiac Telemetry: : 1940 Requested By: JULIANNA HOLCOMB Order Number: [id number] Reading MD: Measurements Intervals [place] Rate: 67 P: 41 MT: 186 QRS: 7 QRSD: 78 T: 3 QT: 402 QTc: 427 Interpretive Statements SINUS RHYTHM ATRIAL PREMATURE COMPLEX(ES) QRS(T) CONTOUR ABNORMALITY CONSIDER INFERIOR MYOCARDIAL DAMAGE POSSIBLY ABNORMAL ECG No previous ECG available for comparison
[2017-02-09] MEDS ORDERED: CHOLECALCIFEROL (VITAMIN D3) 5,000 UNIT CAPSULE PO SCH (09:00)
[2017-02-11] MEDS ORDERED: ESTRADIOL 0.01% VAGINAL CREAM 42.5GM TUBE. VG SCH (21:00)
== END 2017-02-06 12:10 | disposition home or self-care (01) | DRG 682 ==
LOC: ER 15:10 → 5 NORTH 17:29
PROVIDERS: ADMIT Family Medicine; ATTEND Family Medicine
DX: N17.9 Acute kidney failure, unspecified (principal); J96.21 Acute and chronic respiratory failure with hypoxia; M32.9 Systemic lupus erythematosus, unspecified; J44.1 Chronic obstructive pulmonary disease with (acute) exacerbation; E86.0 Dehydration; M35.00 Sjogren syndrome, unspecified; M41.9 Scoliosis, unspecified; M06.9 Rheumatoid arthritis, unspecified; E78.00 Pure hypercholesterolemia, unspecified; I12.9 Hypertensive chronic kidney disease with stage 1 through stage 4 chronic kidney disease, or unspecified chronic kidney disease; N18.9 Chronic kidney disease, unspecified; I35.0 Nonrheumatic aortic (valve) stenosis; F32.9 Major depressive disorder, single episode, unspecified; F41.9 Anxiety disorder, unspecified; M25.569 Pain in unspecified knee; D51.0 Vitamin B12 deficiency anemia due to intrinsic factor deficiency; D72.819 Decreased white blood cell count, unspecified; Z96.659 Presence of unspecified artificial knee joint; Z90.49 Acquired absence of other specified parts of digestive tract; Z90.710 Acquired absence of both cervix and uterus; Z88.2 Allergy status to sulfonamides; Z88.1 Allergy status to other antibiotic agents; Z88.6 Allergy status to analgesic agent; Z82.3 Family history of stroke; Z83.3 Family history of diabetes mellitus; Z81.1 Family history of alcohol abuse and dependence; Z81.8 Family history of other mental and behavioral disorders; Z79.52 Long term (current) use of systemic steroids
CPT/HCPCS: 36415; 71010; 71250; 80048; 80076; 83690; 83880; 84484; 85007; 85025; 93005; 94640; 94760; 96374; J1650; J1956; J2405; J2930; J7620; 99285-25

== ENCOUNTER 2017-02-23 12:57 | Emergency (ER) | payer MEDICARE, OTHER ==
[2017-02-23 13:45] LABS: BILIRUBIN,URINE NEGATIVE (NEG); CLARITY,URINE CLEAR; COLOR,URINE YELLOW; GLUCOSE,URINE NEGATIVE (NEG); NITRITE,URINE NEGATIVE (NEG); PROTEIN,URINE NEGATIVE (NEG-TRACE); UROBILINOGEN,URINE 0.2 mg/dL (0.2 mg/dL)
[2017-02-23 13:50] LABS: ADD MAN DIFF? NO
[2017-02-23 13:55] LABS: BASO # 0.1 x10^3/uL (0.0-0.2); BASO % 1 % (0-3); EOS # 0.1 x10^3/uL (0.0-0.7); EOS % 2 % (0-3); HEMATOCRIT 37.3 % (36.0-47.0); LYMPH % 14 % (24-48); MEAN CORPUSCULAR HEMOGLOBIN 29 pg (25-35); MEAN CORPUSCULAR HGB CONC 32 g/dL (31-37); MEAN CORPUSCULAR VOLUME 90 fL (79-100); MONO # 0.7 x10^3/uL (0.0-1.1); MONO % 9 % (0-9); NEUT # 5.5 x10^3uL (1.8-7.7); NEUT % 74 % (31-73); PLATELET COUNT 229 x10^3/uL (140-400); RED BLOOD COUNT 4.17 x10^6/uL (3.50-5.40); WHITE BLOOD COUNT 7.4 x10^3/uL (4.0-11.0)
[2017-02-23] MEDS: IV NORMAL SALINE 1000ML BAG 1,000 ML IV (13:58)
[2017-02-23] MEDS: ONDANSETRON PF 4 MG/2 ML VIAL. IV (13:59)
[2017-02-23] MEDS: fentaNYL PF VIAL 100 MCG/2 ML VIAL IV (13:59)
[2017-02-23 14:00] LABS: BACTERIA,URINE FEW /HPF (0-FEW); HYALINE CASTS, URINE MODERATE /HPF; RBC,URINE 0 /HPF (0-2); SQUAMOUS EPITHELIAL CELL,UR MOD /LPF; WBC,URINE OCC /HPF (0-4)
[2017-02-23 14:13] LABS: ANION GAP 10 (6-14); BLOOD UREA NITROGEN 17 mg/dL (7-20); BUN/CREATININE RATIO 15 (6-20); CALCIUM 8.7 mg/dL (8.5-10.1); CARBON DIOXIDE 27 mmol/L (21-32); CHLORIDE 106 mmol/L (98-107); CREATININE 1.1 mg/dL (0.6-1.0); GFR 48.3; GLUCOSE 95 mg/dL (70-99); POTASSIUM 4.5 mmol/L (3.5-5.1); SODIUM 143 mmol/L (136-145)
[2017-02-23 14:20] LABS: ALBUMIN 3.6 g/dL (3.4-5.0); ALBUMIN/GLOBULIN RATIO 1.2 (1.0-1.7); ALK PHOS 55 U/L (46-116); ALT (SGPT) 24 U/L (14-59); AST (SGOT) 19 U/L (15-37); TOTAL BILIRUBIN 0.3 mg/dL (0.2-1.0); TOTAL PROTEIN 6.5 g/dL (6.4-8.2)
== END 2017-02-23 15:43 | disposition home or self-care (01) ==
LOC: ER 12:57
DX: M54.9 Dorsalgia, unspecified (principal); R10.9 Unspecified abdominal pain; E78.00 Pure hypercholesterolemia, unspecified; I10 Essential (primary) hypertension; M32.9 Systemic lupus erythematosus, unspecified; Z90.710 Acquired absence of both cervix and uterus; Z90.49 Acquired absence of other specified parts of digestive tract; Z88.2 Allergy status to sulfonamides; Z88.1 Allergy status to other antibiotic agents; Z88.6 Allergy status to analgesic agent
CPT/HCPCS: 36415; 76770; 80053; 81001; 85025; 96361; 96374; 96375; 99285-25; J2405; J3010; J7030

== ENCOUNTER 2017-03-25 22:55 | Emergency (ER) | payer MEDICARE, OTHER ==
[2017-03-25] MEDS: diazePAM 5 MG TABLET PO ×2 (23:35)
[2017-03-25] MEDS: HYDROmorphone 2 MG/ML VIAL IM ×2 (23:35)
[2017-03-25] MEDS: KETOROLAC 15 MG/ML VIAL. IM ×2 (23:36)
== END 2017-03-26 00:52 | disposition home or self-care (01) ==
LOC: ER 03-26 00:52
DX: M54.5 Low back pain (principal); M54.6 Pain in thoracic spine; M62.838 Other muscle spasm; G89.29 Other chronic pain; E78.00 Pure hypercholesterolemia, unspecified; I10 Essential (primary) hypertension; M35.00 Sjogren syndrome, unspecified; M32.9 Systemic lupus erythematosus, unspecified; Z90.710 Acquired absence of both cervix and uterus; Z90.49 Acquired absence of other specified parts of digestive tract; Z79.891 Long term (current) use of opiate analgesic; Z88.2 Allergy status to sulfonamides; Z88.1 Allergy status to other antibiotic agents; Z88.6 Allergy status to analgesic agent
CPT/HCPCS: 96372; 99284-25; J1170; J1885

== ENCOUNTER → 2017-04-22 | Outpatient (CLI) | payer MEDICARE, OTHER ==
[~2017-04-22] MED LIST changes: +BUPIVACAINE MPF 0.25% 10 ML VIAL.; -CLIN150C14 PO; -CLON0.5T PO; -CYCL10TA2 PO; -CYCL1DRO OP; -DULO60CA6 PO; -FENO145T2 PO; -FLUT9.9S NS; -FURO40TA4 PO; -GABA-586 PO; -HYDR-971 PO; -HYDR200T PO; -IBAN150T PO; -LAMO100T5 PO; -LIDO700A39 TP; -LISI-334 PO; -MELO15TA6 PO; -METH2.5T PO; -NITR100C PO; -PANT40TA5 PO; -POTASSIUM CHLO10 MEQ PO; -PRED1TAB3 PO; -QUET300T5 PO; -RISE35TA5 PO; -TIZA4TAB PO; +methylPREDNISolone ACETATE 40 MG/ML VIAL.
== END ==
LOC: PNCL 11:01
DX: M79.1 Myalgia (principal); M51.16 Intervertebral disc disorders with radiculopathy, lumbar region; M25.512 Pain in left shoulder; M25.511 Pain in right shoulder; Z86.73 Personal history of transient ischemic attack (TIA), and cerebral infarction without residual deficits; E78.00 Pure hypercholesterolemia, unspecified; I10 Essential (primary) hypertension; J44.9 Chronic obstructive pulmonary disease, unspecified; Z90.49 Acquired absence of other specified parts of digestive tract; Z96.653 Presence of artificial knee joint, bilateral; F31.9 Bipolar disorder, unspecified; Z88.2 Allergy status to sulfonamides; Z88.1 Allergy status to other antibiotic agents; Z88.6 Allergy status to analgesic agent
CPT/HCPCS: 20553; J1030; J3490

== ENCOUNTER → 2017-04-29 | Outpatient (CLI) | payer MEDICARE, OTHER | END | disposition home or self-care (01) | LOC: KCIC MAMMO 09:54 | DX: Z12.31 Encounter for screening mammogram for malignant neoplasm of breast (principal) | CPT/HCPCS: 77063; 77067 ==

== ENCOUNTER → 2017-05-09 | Outpatient (CLI) | payer MEDICARE, OTHER ==
[~2017-05-09] MED LIST changes: +IOHEXOL 180 MG/ML 10 ML VIAL.; -methylPREDNISolone ACETATE 40 MG/ML VIAL.; +methylPREDNISolone ACETATE 80 MG/ML VIAL.
== END ==
LOC: PNCL 10:38
DX: M51.16 Intervertebral disc disorders with radiculopathy, lumbar region (principal); M19.012 Primary osteoarthritis, left shoulder; M19.011 Primary osteoarthritis, right shoulder
CPT/HCPCS: 20605; 77002; J1040; J3490; Q9965

== ENCOUNTER → 2017-07-29 | Outpatient (CLI) | payer MEDICARE, OTHER ==
[~2017-07-29] MED LIST changes: -BUPIVACAINE MPF 0.25% 10 ML VIAL.; +CONTRAST GIVEN. MC; -IOHEXOL 180 MG/ML 10 ML VIAL.; -methylPREDNISolone ACETATE 80 MG/ML VIAL.
[2017-07-29] MEDS: IOHEXOL 300 MG/ML 100ML VIAL. IV (13:28)
== END | disposition home or self-care (01) ==
LOC: KCIC CT 12:33
DX: K57.30 Diverticulosis of large intestine without perforation or abscess without bleeding (principal); M41.85 Other forms of scoliosis, thoracolumbar region; N28.89 Other specified disorders of kidney and ureter; K76.89 Other specified diseases of liver; I12.9 Hypertensive chronic kidney disease with stage 1 through stage 4 chronic kidney disease, or unspecified chronic kidney disease; N18.4 Chronic kidney disease, stage 4 (severe)
CPT/HCPCS: 74178; Q9967

== ENCOUNTER 2017-08-08 12:37 | Inpatient (IN) | payer MEDICARE, OTHER ==
[2017-08-08 13:41] LABS: ADD MAN DIFF? NO
[2017-08-08 13:53] LABS: ANION GAP 6 (6-14); BLOOD UREA NITROGEN 25 mg/dL (7-20); BUN/CREATININE RATIO 19 (6-20); CALCIUM 9.5 mg/dL (8.5-10.1); CARBON DIOXIDE 29 mmol/L (21-32); CHLORIDE 103 mmol/L (98-107); CREATININE 1.3 mg/dL (0.6-1.0); GFR 39.7; GLUCOSE 86 mg/dL (70-99); POTASSIUM 4.9 mmol/L (3.5-5.1); SODIUM 138 mmol/L (136-145)
[2017-08-08] MEDS: IPRATRPIUM/ALBUTEROL 0.5/2.5MG 3 ML NEBU. NEB (13:54)
[2017-08-08 13:55] LABS: BASO # 0.1 x10^3/uL (0.0-0.2); BASO % 1 % (0-3); BILIRUBIN,URINE NEGATIVE (NEG); CLARITY,URINE CLEAR; COLOR,URINE ORANGE; EOS # 0.1 x10^3/uL (0.0-0.7); EOS % 2 % (0-3); GLUCOSE,URINE NEGATIVE (NEG); HEMATOCRIT 35.5 % (36.0-47.0); HEMOGLOBIN 11.7 g/dL (12.0-15.5); LYMPH # 0.9 x10^3/uL (1.0-4.8); LYMPH % 19 % (24-48); MEAN CORPUSCULAR HEMOGLOBIN 30 pg (25-35); MEAN CORPUSCULAR HGB CONC 33 g/dL (31-37); MEAN CORPUSCULAR VOLUME 90 fL (79-100); MONO # 0.6 x10^3/uL (0.0-1.1); MONO % 11 % (0-9); NEUT # 3.3 x10^3uL (1.8-7.7); NEUT % 67 % (31-73); NITRITE,URINE POSITIVE (NEG); PLATELET COUNT 255 x10^3/uL (140-400); PROTEIN,URINE NEGATIVE (NEG-TRACE); RED BLOOD COUNT 3.95 x10^6/uL (3.50-5.40); RED CELL DISTRIBUTION WIDTH 14.4 % (11.5-14.5)
[2017-08-08 13:59] LABS: ALBUMIN 3.8 g/dL (3.4-5.0); ALBUMIN/GLOBULIN RATIO 1.2 (1.0-1.7); ALK PHOS 32 U/L (46-116); ALT (SGPT) 22 U/L (14-59); AST (SGOT) 32 U/L (15-37); MAGNESIUM 1.9 mg/dL (1.8-2.4); TOTAL BILIRUBIN 0.5 mg/dL (0.2-1.0)
[2017-08-08 14:01] LABS: TROPONINI < 0.017 ng/mL (0.000-0.055)
[2017-08-08 14:07] LABS: CKMB MASS 1.1 ng/mL (0.0-3.6); CREATINE KINASE 105 U/L (26-192)
[2017-08-08 14:07] LABS: NT-PRO BNP 326 pg/mL (0-449)
[2017-08-08 14:08] LABS: D-DIMER 0.52 ug/mlFEU (0.00-0.50)
[2017-08-08] MEDS: methylPREDNISolone SOD SUCC PF 125 MG/2 ML VIAL. IV (14:13)
[2017-08-08] MEDS: IV NORMAL SALINE 1000ML BAG 1,000 ML IV ×2 (14:13→18:02)
[2017-08-08 14:19] LABS: BACTERIA,URINE 0 /HPF (0-FEW); HYALINE CASTS, URINE MODERATE /HPF; RBC,URINE OCC /HPF (0-2); SQUAMOUS EPITHELIAL CELL,UR FEW /LPF; WBC,URINE 0 /HPF (0-4)
[2017-08-08] MEDS: methylPREDNISolone SOD SUCC PF 40 MG/ML VIAL. IV ×2 (18:02→23:08)
[2017-08-08] MEDS ORDERED: NON FORMULARY ITEM (Ibandronate Sodium (Boniva) 150 MG) PO (22:00)
[2017-08-08] MEDS: BACLOFEN 10 MG TABLET. PO (23:07)
[2017-08-08] MEDS: lamoTRIgine 100 MG TABLET. PO (23:08)
[2017-08-08] MEDS: GABAPENTIN 300 MG CAPSULE. PO (23:08)
[2017-08-08] MEDS: QUEtiapine 100 MG TABLET. PO (23:08)
[2017-08-08] MEDS: OXYBUTYNIN CHLORIDE 5 MG TABLET PO (23:08)
[2017-08-08] MEDS: HYDROcodone/APAP 5/325MG 1 TAB TABLET PO (23:09)
[2017-08-09] MEDS: BACLOFEN 10 MG TABLET. PO ×4 (05:53→23:24)
[2017-08-09] MEDS: HYDROcodone/APAP 5/325MG 1 TAB TABLET PO ×3 (05:53→21:32)
[2017-08-09] MEDS: methylPREDNISolone SOD SUCC PF 40 MG/ML VIAL. IV ×4 (05:53→23:24)
[2017-08-09] MEDS: PANTOPRAZOLE 40 MG TABLET.DR. PO (08:05)
[2017-08-09] MEDS: HYDROXYCHLOROQUINE 200 MG TABLET PO ×2 (08:05→21:31)
[2017-08-09] MEDS: GABAPENTIN 300 MG CAPSULE. PO ×2 (08:05→21:32)
[2017-08-09] MEDS: lamoTRIgine 100 MG TABLET. PO ×2 (08:05→21:31)
[2017-08-09] MEDS: NITROFURANTOIN MONOHYD/M-CRYST 100 MG CAPSULE. PO (08:05)
[2017-08-09] MEDS: OXYBUTYNIN CHLORIDE 5 MG TABLET PO ×2 (08:06→21:31)
[2017-08-09] MEDS: LISINOPRIL 20 MG TABLET PO (08:06)
[2017-08-09] MEDS: FUROSEMIDE 40 MG TABLET. PO (08:06)
[2017-08-09] MEDS: DULoxetine HCL 30 MG CAPSULE.DR PO (08:06)
[2017-08-09] MEDS: FLUTICASONE 50MCG/NASAL SPRAY 16GM BOTTLE. NS (08:07)
[2017-08-09] MEDS ORDERED: GABAPENTIN 300 MG CAPSULE. PO (09:00)
[2017-08-09] MEDS ORDERED: LAMOTRIGINE PO (09:00)
[2017-08-09] MEDS ORDERED: predniSONE 1 MG TABLET PO (09:00)
[2017-08-09] MEDS: cycloSPORINE 0.05% OPTH 1 DROP DROPERETTE OU (15:47)
[2017-08-09 15:52] LABS: BASE EXCESS COOX 2 mmol/L (-3-3); CARBON MONOXIDE 2.3 % (0.0-1.9); HCO3 COOX 27 mmol/L (21-28); METHEMOGLOBIN 0.2 % (0.0-1.9); OXYHEMOGLOBIN 88.6 %; PCO2 COOX 42 mmHg (35-46); PH COOX 7.42 (7.35-7.45); PO2 COOX 64 mmHg (65-108); SAT O2 COOX 91 % (92-99)
[2017-08-09 16:07] LABS: FIO2 COOX 21
[2017-08-09] MEDS ORDERED: NON FORMULARY ITEM (Quetiapine Fumarate (Seroquel) 1 TAB) PO (21:00)
[2017-08-09] MEDS: FENOFIBRATE,MICRONIZED 134 MG CAPSULE PO (21:31)
[2017-08-09] MEDS: QUEtiapine 100 MG TABLET. PO (21:31)
[2017-08-09] MEDS: POLYETHYLENE GLYCOL 3350 17 GM PACKET. PO (21:33)
[2017-08-10] MEDS: HYDROcodone/APAP 5/325MG 1 TAB TABLET PO ×2 (03:35→11:28)
[2017-08-10] MEDS: BACLOFEN 10 MG TABLET. PO ×2 (06:09→11:29)
[2017-08-10] MEDS: methylPREDNISolone SOD SUCC PF 40 MG/ML VIAL. IV ×2 (06:09→11:45)
[2017-08-10 10:06] LABS: SEDIMENTATION RATE 2 (0-25)
[2017-08-10] MEDS: DULoxetine HCL 30 MG CAPSULE.DR PO (11:28)
[2017-08-10] MEDS: HYDROXYCHLOROQUINE 200 MG TABLET PO (11:28)
[2017-08-10] MEDS: lamoTRIgine 100 MG TABLET. PO (11:29)
[2017-08-10] MEDS: OXYBUTYNIN CHLORIDE 5 MG TABLET PO (11:29)
[2017-08-10] MEDS: LISINOPRIL 20 MG TABLET PO (11:29)
[2017-08-10] MEDS: NITROFURANTOIN MONOHYD/M-CRYST 100 MG CAPSULE. PO (11:29)
[2017-08-10] MEDS: PANTOPRAZOLE 40 MG TABLET.DR. PO (11:29)
[2017-08-10] MEDS: FLUTICASONE 50MCG/NASAL SPRAY 16GM BOTTLE. NS (11:29)
[2017-08-10] MEDS: FUROSEMIDE 40 MG TABLET. PO (11:29)
[2017-08-10] MEDS: GABAPENTIN 300 MG CAPSULE. PO (11:29)
[2017-08-10] MEDS: cycloSPORINE 0.05% OPTH 1 DROP DROPERETTE OU (11:30)
[2017-08-10] MEDS ORDERED: CHOLECALCIFEROL (VITAMIN D3) 5,000 UNIT CAPSULE PO (16:00)
[2017-08-15] MEDS ORDERED: ESTRADIOL 0.01% VAGINAL CREAM 42.5GM TUBE. VG (09:00)
== END 2017-08-10 15:45 | disposition home or self-care (01) | DRG 189 ==
LOC: ER 12:37 → ED HOLD 14:55 → 5 SOUTH 16:40
DX: J96.01 Acute respiratory failure with hypoxia (principal); J44.1 Chronic obstructive pulmonary disease with (acute) exacerbation; N17.9 Acute kidney failure, unspecified; J98.11 Atelectasis; E78.00 Pure hypercholesterolemia, unspecified; E78.5 Hyperlipidemia, unspecified; I12.9 Hypertensive chronic kidney disease with stage 1 through stage 4 chronic kidney disease, or unspecified chronic kidney disease; I35.0 Nonrheumatic aortic (valve) stenosis; F41.9 Anxiety disorder, unspecified; M19.90 Unspecified osteoarthritis, unspecified site; F31.9 Bipolar disorder, unspecified; M35.9 Systemic involvement of connective tissue, unspecified; J98.6 Disorders of diaphragm; K21.9 Gastro-esophageal reflux disease without esophagitis; M32.9 Systemic lupus erythematosus, unspecified; M35.00 Sjogren syndrome, unspecified; M41.9 Scoliosis, unspecified; N18.9 Chronic kidney disease, unspecified; Z82.49 Family history of ischemic heart disease and other diseases of the circulatory system; Z90.49 Acquired absence of other specified parts of digestive tract; Z90.710 Acquired absence of both cervix and uterus; Z96.659 Presence of unspecified artificial knee joint; Z88.1 Allergy status to other antibiotic agents; Z88.5 Allergy status to narcotic agent; Z88.2 Allergy status to sulfonamides; Z79.899 Other long term (current) drug therapy; Z87.440 Personal history of urinary (tract) infections
CPT/HCPCS: 36415; 36600; 71046; 71250; 76001; 78582; 80053; 81001; 82553; 82805; 83735; 83880; 84484; 85025; 85379; 85610; 85651; 87086; 93005; 93306; 94618; 94640; 96374; 97161-GP; 97165-GO; 99285; 99285-25; A9540; A9558; J2920; J2930; J7030; J7620

== ENCOUNTER 2017-12-08 11:38 | Emergency (ER) | payer MEDICARE, OTHER ==
[~2017-12-08] VITALS: Ht 152.4 cm; Wt 91.2 kg
[~2017-12-08 11:38] MED LIST changes: +BACL10TA PO; +CHOL500051 PO; +CLIN150C14 PO; +CLON0.5T PO; -CONTRAST GIVEN. MC; +CYANOCOBALAMIN IJ; +CYCL10TA2 PO; +CYCL1DRO OP; +DULO60CA6 PO; +ESTR42.53 VG; +FENO145T30 PO; +FENO160T PO; +FLUT12AE2 IH; +FLUT9.9S NS; +FURO40TA4 PO; +GABA-586 PO; +HYDR-971 PO; +HYDR200T71 PO; +IBAN150T PO; +LAMO100T5 PO; +LEVO500T59 PO; +LIDO700A39 TP; +LISI-334 PO; +MELO15TA6 PO; +METH2.5T PO; +NITR100C PO; +NITR100C62 PO; +OXYB10TA PO; +PANT40TA5 PO; +POLY17PO29 PO; +POTA10TA12 PO; +PRED-220 PO; +PRED1TAB3 PO; +PRED2.5T PO; +PROAIR HFA8.5 GM INH; +QUET300T5 PO; +RISE35TA5 PO; +TIZA4TAB PO; +[UNRECOGNIZED DRUG - OTHER] IJ
--- NOTE | 2017-12-08 12:25 | PHYS DOC ---
Past Medical History Past Medical History: High Cholesterol, Hypertension Additional Past Medical Histor: ADVANCED LUPUS, SJOGRENS SYNDROME Past Surgical History: Cholecystectomy, Hysterectomy, Knee Replacement Additional Past Surgical Histo: LEFT FOOT Alcohol Use: Sober Drug Use: None Adult General Chief Complaint Chief Complaint: FLANK PAIN HPI HPI Patient is a 77 year old female with history of advanced lupus, Sjogren's disease with chronic neck, back, shoulder, flank and pelvic pain in chronic cystitis who presents with increased right-sided flank pain greater intensity than usual for the past several days. Pain is worse with movement and palpation and is pearly controlled with hydrocodone which she takes chronically. Patient was started on antibiotic for treatment of her lower urinary tract infection yesterday. She is completed 2 doses of Macrobid. Denies fever, chills, nausea, vomiting and sweats. No hematuria. No chest pain palpitations. No diarrhea or constipation. No other acute symptoms or complaints. [] Review of Systems Review of Systems Review symptoms as per history of present illness. All other review symptoms are negative All other systems were reviewed and found to be within normal limits, except as documented in this note. Current Medications Current Medications Current Medications Medications (Trade) Dose Ordered Sig/Mary Start Time Stop Time Status Last Admin Dose Admin Phenazopyridine HCl (Pyridium) 200 mg 1X ONCE 12/08/17 12:30 12/08/17 12:31 DC 12/08/17 13:34 200 MG Allergies Allergies Allergies Coded Allergies Type Severity Reaction Last Updated Verified Sulfa (Sulfonamide Antibiotics) Adverse Reaction Intermediate NAUSEA AND VOMITING 03/25/15 Yes cephalexin Adverse Reaction Intermediate VOMITING 03/25/15 Yes tramadol Adverse Reaction Intermediate DIZZINESS 03/25/15 Yes Physical Exam Physical Exam Constitutional: Well developed, well nourished, no acute distress, non-toxic appearance. [] HENT: Normocephalic, atraumatic, bilateral external ears normal, oropharynx moist, nose normal. [] Eyes: PERRLA, EOMI, conjunctiva normal. [] Neck: Normal range of motion, no tenderness. [] Cardiovascular:Heart rate regular rhythm, no murmur. [] Lungs & Thorax: Bilateral breath sounds clear to auscultation. [] Abdomen: Bowel sounds normal, soft, no tenderness. [] Skin: Warm, dry. [] Back: No tenderness, no CVA tenderness. [] Extremities: No midline pain/TTP. CVA/paravertebral tenderness[] Neurologic: Alert and oriented X 3, normal motor function, normal sensory function, no focal deficits noted. [] Psychologic: Affect normal, judgement normal, mood normal. [] Current Patient Data Vital Signs Vital Signs Date Time Temp Pulse Resp B/P (MAP) Pulse Ox O2 Delivery O2 Flow Rate FiO2 12/08/17 11:38 98.0 76 15 124/60 (81) 92 Nasal Cannula 5.0 98.0 Lab Values Laboratory Tests Test 12/08/17 11:55 12/08/17 13:10 Urine Collection Type Unknown Urine Color Yellow Urine Clarity Clear Urine pH 7.0 Urine Specific [place] 1.010 Urine Protein Negative mg/dL (NEG-TRACE) Urine Glucose (UA) Negative mg/dL (NEG) Urine Ketones (Stick) Negative mg/dL (NEG) Urine Blood Negative (NEG) Urine Nitrite Negative (NEG) Urine Bilirubin Negative (NEG) Urine Urobilinogen Dipstick 0.2 mg/dL (0.2 mg/dL) Urine Leukocyte Esterase Negative (NEG) Urine RBC 3-5 /HPF (0-2) Urine WBC Occ /HPF (0-4) Urine Squamous Epithelial Cells Many /LPF Urine Bacteria Few /HPF (0-FEW) White Blood Count 5.1 x10^3/uL (4.0-11.0) Red Blood Count 3.18 x10^6/uL (3.50-5.40) L Hemoglobin 9.7 g/dL (12.0-15.5) L Hematocrit 29.2 % (36.0-47.0) L Mean Corpuscular Volume 92 fL (79-100) Mean Corpuscular Hemoglobin 31 pg (25-35) Mean Corpuscular Hemoglobin Concent 33 g/dL (31-37) Red Cell Distribution Width 13.7 % (11.5-14.5) Platelet Count 201 x10^3/uL (140-400) Neutrophils (%) (Auto) 70 % (31-73) Lymphocytes (%) (Auto) 14 % (24-48) L Monocytes (%) (Auto) 11 % (0-9) H Eosinophils (%) (Auto) 3 % (0-3) Basophils (%) (Auto) 1 % (0-3) Neutrophils # (Auto) 3.6 x10^3uL (1.8-7.7) Lymphocytes # (Auto) 0.7 x10^3/uL (1.0-4.8) L Monocytes # (Auto) 0.6 x10^3/uL (0.0-1.1) Eosinophils # (Auto) 0.2 x10^3/uL (0.0-0.7) Basophils # (Auto) 0.1 x10^3/uL (0.0-0.2) Sodium Level 141 mmol/L (136-145) Potassium Level 4.1 mmol/L (3.5-5.1) Chloride Level 105 mmol/L (98-107) Carbon Dioxide Level 33 mmol/L (21-32) H Anion Gap 3 (6-14) L Blood Urea Nitrogen 21 mg/dL (7-20) H Creatinine 0.9 mg/dL (0.6-1.0) Estimated GFR (Cockcroft-Gault) 60.7 Glucose Level 110 mg/dL (70-99) H Calcium Level 9.7 mg/dL (8.5-10.1) Laboratory Tests 12/08/17 13:10 Laboratory Tests 12/08/17 13:10 EKG EKG [] Radiology/Procedures Radiology/Procedures [] Course & Med Decision Making Course & Med Decision Making Pertinent Labs and Imaging studies reviewed. (See chart for details) [No nausea vomiting in the ED. Abdomen remains soft, nonsurgical non-pulsatile. Right flank is long-standing. No lab evidence suggestive pelvis of kidney stone or infection. Recommend continued supportive care and PCP follow-up as scheduled next week. Return precautions reviewed..] Dragon Disclaimer Dragon Disclaimer This electronic medical record was generated, in whole or in part, using a voice recognition dictation system. Departure Departure Impression: Primary Impression: Flank pain Disposition: 01 HOME, SELF-CARE Condition: GOOD Referrals: CLIFTON ADAME MD (PCP) Patient Instructions: Flank Pain, [id number] Additional Instructions: Please take an additional dose of hydrocodone prior to bedtime. Follow-up with your PCP early next week for reevaluation. In the meantime if you develop new or worsening symptoms, please return to the emergency department. PEACE ROBERSON DO Dec 08, 2017 12:25
[2017-12-08 12:29] LABS: BILIRUBIN,URINE NEGATIVE (NEG); CLARITY,URINE CLEAR; COLOR,URINE YELLOW; NITRITE,URINE NEGATIVE (NEG); PROTEIN,URINE NEGATIVE (NEG-TRACE); UROBILINOGEN,URINE 0.2 mg/dL (0.2 mg/dL)
[2017-12-08] MEDS ORDERED: PHENAZOPYRIDINE 200 MG TABLET. PO ONE (12:30)
[2017-12-08 12:40] LABS: BACTERIA,URINE FEW /HPF (0-FEW); SQUAMOUS EPITHELIAL CELL,UR MANY /LPF; WBC,URINE OCC /HPF (0-4)
[2017-12-08 13:20] LABS: BASO # 0.1 x10^3/uL (0.0-0.2); BASO % 1 % (0-3); EOS # 0.2 x10^3/uL (0.0-0.7); EOS % 3 % (0-3); HEMATOCRIT 29.2 % (36.0-47.0); HEMOGLOBIN 9.7 g/dL (12.0-15.5); LYMPH # 0.7 x10^3/uL (1.0-4.8); LYMPH % 14 % (24-48); MEAN CORPUSCULAR HEMOGLOBIN 31 pg (25-35); MEAN CORPUSCULAR HGB CONC 33 g/dL (31-37); MEAN CORPUSCULAR VOLUME 92 fL (79-100); MONO # 0.6 x10^3/uL (0.0-1.1); MONO % 11 % (0-9); NEUT # 3.6 x10^3uL (1.8-7.7); NEUT % 70 % (31-73); PLATELET COUNT 201 x10^3/uL (140-400); RED BLOOD COUNT 3.18 x10^6/uL (3.50-5.40); RED CELL DISTRIBUTION WIDTH 13.7 % (11.5-14.5); WHITE BLOOD COUNT 5.1 x10^3/uL (4.0-11.0)
[2017-12-08 13:26] LABS: CALCIUM 9.7 mg/dL (8.5-10.1); CREATININE 0.9 mg/dL (0.6-1.0); GFR 60.7; POTASSIUM 4.1 mmol/L (3.5-5.1)
[2017-12-08 14:13] VITALS: BP 143/65
== END 2017-12-08 14:13 | disposition home or self-care (01) ==
LOC: ER 11:38
DX: G89.29 Other chronic pain (principal); R10.9 Unspecified abdominal pain; M54.2 Cervicalgia; R10.2 Pelvic and perineal pain; M54.9 Dorsalgia, unspecified; M25.519 Pain in unspecified shoulder; I10 Essential (primary) hypertension; E78.00 Pure hypercholesterolemia, unspecified; M32.9 Systemic lupus erythematosus, unspecified; Z90.710 Acquired absence of both cervix and uterus; Z90.49 Acquired absence of other specified parts of digestive tract; Z88.2 Allergy status to sulfonamides; Z88.1 Allergy status to other antibiotic agents; Z88.6 Allergy status to analgesic agent
CPT/HCPCS: 36415; 80048; 81001; 85025; 99284

== ENCOUNTER → 2018-03-10 | Outpatient (CLI) | payer MEDICARE, OTHER ==
[~2018-03-10] MED LIST changes: +ALBU2.5V8 INH; +ALPR0.5T PO; +BUPIVACAINE MPF 0.25% 10 ML VIAL. ONE; -GABA-586 PO; +GABA300C18 PO; +HYDR-3164 PO; -HYDR-971 PO; +IOHEXOL 180 MG/ML 10 ML VIAL. ONE; +LUBI24CA7 PO; -PROAIR HFA8.5 GM INH; +methylPREDNISolone ACETATE 80 MG/ML VIAL. ONE
--- NOTE | 2018-03-10 14:17 | PAIN ---
DATE OF SERVICE: 03/10/2018 PROGRESS NOTE FOR PAIN CLINIC DIAGNOSES: 1. Lumbar radiculopathy with lumbar degenerative disk disease. 2. Bilateral shoulder joint pain, acromioclavicular joints. 3. Myofascial pain. HISTORY OF PRESENT ILLNESS: The patient is a 77-year-old female who returns for followup status post bilateral acromioclavicular joint injections, last seen 05/09/2017. The patient reports her shoulder pain was doing very well with about a 75% improvement overall now still about 60% improvement, but the pain has been returning in the right and left shoulder joints with activity, especially raising her hands above her head or repetitive motions, reaching forward or carrying items or pulling items. The patient also using a walker, which she feels when she puts enough weight on her shoulders, does it cause painful as well. The patient reports it is an 8 on a scale of 10 at its worst, 7 on average, 5 at its least and is a 7 today. The patient reports it is equal right and left, cramping, sharp, stabbing and aching at times as well. She was initially doing her household activities with much greater ease and comfort, traveling better and more comfortably and using her walker more comfortably and effectively. The patient reports she is sleeping about 6-8 hours a night and it can awaken her from sleep, especially if she lies on her side, right or left. The patient reports no new motor or sensory deficits or other complaints. PHYSICAL EXAMINATION: VITAL SIGNS: The patient's blood pressure 131/77, pulse 71, respirations 20, temperature 97.7 degrees Fahrenheit, weight is 207 pounds. GENERAL: The patient is awake, alert, oriented, appropriate, very pleasant demeanor. HEENT: Head shows normocephalic, atraumatic. Extraocular movements intact and symmetrical. Oral cavity: Mucous membranes moist and pink. Dentition is intact. NECK: Shows anterior throat supple without palpable lymphadenopathy noted. Swallow reflex symmetrical. CHEST: Shows normal with inspection. Breath sounds are clear to auscultation bilaterally. HEART: Shows S1, S2 clear. No murmurs auscultated. ABDOMEN: Soft, obese, nontender, nondistended. No palpable organomegaly is noted. BACK: Shows spine grossly with some scoliosis to the right in the thoracic distribution with increased thoracic kyphosis. There is some moderate tenderness with palpation in the inferior cervical paraspinous musculature, trapezius musculature as well as the left greater than right thoracic paraspinous musculature, very firm rope-like musculature consistent with trigger point areas of muscle in this area as well. EXTREMITIES: The patient's upper extremities show deep tendon reflexes 2+ in the biceps and triceps tendons. Motor exam is approximately 4 on a scale of 5 with management trainee strength, but equal bilaterally. Peripheral pulses are 2+ radial distribution. No peripheral edema is noted. The patient does have some superficial bruising on the forearms bilaterally. The patient's shoulders show tenderness with abduction of the shoulders as well as with palpation over the acromioclavicular joint superiorly and posteriorly, bilaterally, very significant tenderness and this is painful with extending the arms inferiorly and reaching and holding to the side. PLAN: Options were discussed with the patient. The patient's old chart was reviewed as her current medication regimen updated. Current review of systems updated today as well and we will proceed with bilateral acromioclavicular joint injections today with fluoroscopic guidance. Risks were again discussed including, but not limited to bleeding, infection, possibility of intravascular injection sequelae, spread of local anesthetic and numbness, side effects of steroid medication, exposure to fluoroscopy and poor results regarding pain control. The patient understands and wished to proceed. The patient will return to clinic in approximately 2 weeks for followup, was counseled on return appointment, activity level and side effects to be aware of. DIAGNOSES: Bilateral shoulder joint pain, acromioclavicular joints with primary osteoarthritis of acromioclavicular joints, bilateral shoulders. PROCEDURES: Bilateral acromioclavicular joint injections using C-arm fluoroscopic guidance under sterile prep and drape using local anesthetic. MEDICATION INJECTED: A total of 40 mg Depo-Medrol per shoulder to 80 mg total and total of 8 mL of 0.25% bupivacaine 4 mL per shoulder after negative aspiration, a total of 2 mL, 1 mL per shoulder of Isovue for contrast. CONDITION AT DISCHARGE: Stable. The patient tolerated the procedure well, had no complications. DEANN GARRISON MD DR: HO/harriet JOB#: [id number] / [id number]
== END | disposition home or self-care (01) ==
LOC: PNCL 11:04
PROVIDERS: ATTEND Anesthesiology
DX: M19.012 Primary osteoarthritis, left shoulder (principal); M19.011 Primary osteoarthritis, right shoulder; M79.18 Myalgia, other site; M51.16 Intervertebral disc disorders with radiculopathy, lumbar region; Z98.890 Other specified postprocedural states
CPT/HCPCS: 20605; 77002; J1040; J3490; Q9965

== ENCOUNTER → 2019-09-13 | Outpatient (CLI) | payer MEDICARE, OTHER ==
[~2019-09-13] MED LIST changes: +ALBU2.5V8 IH; +ALPR0.254 PO; +CHOL2400 MC; +CYAN50008 IM; +FENO145T3 PO; -FENO145T30 PO; +FLUT12AE IH; -IBAN150T PO; +IBAN150T15 PO; +LIDO700A21 TP; -LIDO700A39 TP; +MIRA50TA PO; -OXYB10TA PO; +OXYB10TA26 PO; -PANT40TA5 PO; +PANT40TA77 PO; +QUET200T PO; -TIZA4TAB PO; +TIZA4TAB2 PO
--- NOTE | 2019-09-13 14:35 | PAIN ---
DATE OF SERVICE: 09/13/2019 PROGRESS NOTE FOR PAIN CLINIC DIAGNOSES: 1. Lumbar radiculopathy with lumbar degenerative disk disease. 2. Bilateral shoulder joint pain, acromioclavicular joints with osteoarthritis, primarily in the acromioclavicular joints. 3. Myofascial pain. HISTORY OF PRESENT ILLNESS: The patient is a 79-year-old female who returns for followup, last seen 03/10/2018, had acromioclavicular joint injection. She did very well. The patient reports near 100% improvement initially. The patient reports the pain is returning now to about 50% level over the past 6 months or so. The patient reports it is in the bilateral shoulders, worse with weightbearing or lifting items, using her walker and putting any weight on her shoulders. Initially she did very well with increased activity with walking activities and using the walker and household activities with much greater ease and comfort. The patient reports it is bilateral now slightly worse on the right than the left, but present bilaterally. The patient reports it is an 8 on a scale of 10 at its worst over the past week, 6 on average and 4 at its least and is a 6 today. The patient reports it is sharp and stinging, sometimes cramping and stabbing in the shoulders themselves. The patient also has some tenderness in the mid back, which is secondary. The patient is wearing a back brace today, which she reports does help significantly with the back pain. PHYSICAL EXAMINATION: VITAL SIGNS: The patient's blood pressure 134/66, pulse 74, respirations 24, temperature 98.9 degrees Fahrenheit, height is 5 feet 6 inches and weight is 192 pounds. Oxygen saturation is 92% on 5 liters nasal cannula. GENERAL: The patient is awake, alert, oriented, appropriate, very pleasant demeanor. HEENT: Shows normocephalic, atraumatic. The patient wears eyeglasses. Extraocular movements are intact and symmetrical. Oral cavity shows mucous membranes moist and pink. Dentition is intact. NECK: Shows anterior throat supple without palpable lymphadenopathy noted. Swallow reflex symmetrical. Neck shows good rotational motion both laterally as well as extension and flexion without significant difficulty. CHEST: Shows normal on inspection. Breath sounds are distant bilaterally, slightly tachypneic, but clear. No rales, rhonchi or wheezes auscultated both anterior and posterior upper and lower lung carmona. HEART: Shows S1, S2 clear. ABDOMEN: Obese, soft, nontender, nondistended. BACK: Shows spine with significant scoliosis to the left in the thoracic distribution and some rightward scoliosis in the lumbar distribution. There is moderate tenderness throughout the thoracic and lumbar paraspinous musculature, upper and lower bilaterally diffusely throughout with some very firm rope-like musculature in the mid right-sided flank and paraspinous musculature as well. EXTREMITIES: The patient's upper extremities show deep tendon reflexes 2+ in the biceps, triceps tendons. Motor exam is approximately 4 on a scale of 5 with laboratory inspector strength, but equal and symmetrical as is bicep and tricep flexion. The patient's acromioclavicular joints show significant tenderness with palpation over the distal end of the clavicle as well as the posterior aspect of the clavicle on the distal end and the acromion with palpation. This is worse with weightbearing and pulling the arms inferiorly, both sides, again somewhat worse on the right than the left, but present bilaterally. The patient shows good rotational motion with abduction of the shoulders without loss of strength on resistance, but significant tenderness with resistance with this maneuver as well as shoulder shrug, but again no loss of strength. Options were discussed with the patient. The patient's old chart was reviewed as her current medication regimen updated. Current review of systems updated today as well. We will proceed with bilateral acromioclavicular joint injections with fluoroscopic guidance today. Risks were discussed including but not limited to bleeding, infection, possibility of intravascular injection sequelae, spread of local anesthetic and numbness, side effects of steroid medication, exposure to fluoroscopy and poor results regarding pain control. The patient understands and wished to proceed. The patient will return to clinic in approximately 4 weeks for followup or as necessary, would like to call for any additional appointments. The patient was counseled as to activity level as well as side effects to be aware of. DIAGNOSIS: Bilateral shoulder joint pain, acromioclavicular joints with osteoarthritis of acromioclavicular joints bilaterally. PROCEDURE: Acromioclavicular joint injections using C-arm fluoroscopic guidance under sterile prep and drape using local anesthetic. MEDICATION INJECTED: A total of 80 mg of Depo-Medrol, 40 mg per side; total of 2 mL of Isovue, 1 mL per side; and total of 4 mL of 0.25% bupivacaine, 2 mL per side after negative aspiration. CONDITION AT DISCHARGE: Stable. The patient tolerated procedure well, had no complications. DEANN GARRISON MD DR: HO/harriet JOB#: [id number] / [id number]
== END | disposition home or self-care (01) ==
LOC: PNCL 13:16
PROVIDERS: ATTEND Anesthesiology
DX: M19.012 Primary osteoarthritis, left shoulder (principal); M19.011 Primary osteoarthritis, right shoulder; M51.16 Intervertebral disc disorders with radiculopathy, lumbar region; M79.18 Myalgia, other site; Z79.899 Other long term (current) drug therapy; Z88.2 Allergy status to sulfonamides; Z88.8 Allergy status to other drugs, medicaments and biological substances
CPT/HCPCS: 20605; 77002; J1040; J3490; Q9965